=== PATIENT | male | born 1960 | race Caucasian/White ===

== ENCOUNTER 2020-09-20 09:00 | Outpatient (RCR) | payer BC, OTHER, SELFPAY | END 2020-09-27 14:00 | disposition home or self-care (01) | LOC: PT.CARL 09:00 | PROVIDERS: PCP Family Medicine; Visit Provider Neurological Surgery | DX: M51.16 Intervertebral disc disorders with radiculopathy, lumbar region (principal) | CPT/HCPCS: 97010; 97012; 97014; 97033; 97110; 97140; 97163; 97164; G0283 ==

== ENCOUNTER 2021-02-11 08:00 | Outpatient (RCR) | payer BC, OTHER, SELFPAY | END 2021-02-14 13:37 | disposition home or self-care (01) | LOC: PT.CARL 08:00 | PROVIDERS: PCP Family Medicine; Visit Provider Neurological Surgery | DX: M54.5 Low back pain; G89.18 Other acute postprocedural pain | CPT/HCPCS: 97010; 97014; 97110; 97140; 97163; 97164; G0283 ==

== ENCOUNTER 2022-04-16 21:45 | Emergency (ER) | payer BC, OTHER, SELFPAY ==
[2022-04-16 21:47] VITALS: BP 134/86; PULSE 83; RESP 18; TEMP 36.8; O2SAT 98; BMI 29.8
--- NOTE | 2022-04-16 22:17 | XR_ITS ---
PROCEDURE INFORMATION: Exam: XR Left Hand Exam date and time: 04/16/2022 10:14 PM Age: 62 years old Clinical indication: Injury or trauma; Other: Closed utv tailgate on left hand. Blunt trauma (contusions or hematomas); Additional info: Accident TECHNIQUE: Imaging protocol: Radiologic exam of the Left hand. Views: 3 or more views. COMPARISON: No relevant prior studies available. FINDINGS: Bones/joints: Mildly displaced fracture of the proximal metaphysis of the distal phalanx of the little finger. Soft tissues: Normal. IMPRESSION: Mildly displaced fracture of the proximal metaphysis of the distal phalanx of the little finger.
--- NOTE | 2022-04-16 23:03 | HMH.EDUPEXT ---
Discharge Plan Disposition Patient Disposition: Home, Self-Care Chief Complaint: Extremity Injury, Upper Prescriptions Prescriptions: New cephalexin [cephalexin] 500 mg capsule 500 mg PO TID Qty: 30 0RF No Action metformin 500 MG tablet 500 mg PO BID aspirin [Adult Aspirin Regimen] 81 MG tablet,delayed release (DR/EC) 81 mg PO DAILY levothyroxine 100 MCG tablet 100 mg PO DAILY metoprolol tartrate 50 MG tablet 50 mg PO BID omeprazole 20 MG capsule,delayed release(DR/EC) 20 mg PO DAILY lisinopril 5 MG tablet 5 mg PO DAILY loratadine [Claritin Liqui-Gel] 10 MG capsule 10 mg PO DAILY Referrals Referrals: Bijan Cardoso JR, MD [Physician] - Enter time for follow up Moustapha Alvarado MD [Emergency Provider] - Enter time for follow up Vianey Call [Primary Care Provider] - Enter time for follow up Clinical Impressions Clinical Impression: Finger fracture, left Instructions Patient Instructions: DI for Finger Fracture Discharge ED Provider: Moustapha Alvarado Upper Extremity HPI General Chief Complaint: Extremity Injury, Upper Stated Complaint: [id number] left pinky finger inj Time Seen by Provider: 04/16/22 23:03 Mode of Arrival: Ambulatory Source of Information: Patient, Spouse and Medical Record Limitations: No Limitations Description of Symptoms (Recalled from ER Triage Doc. by RN): pt states was shutting tailgate and close lt pinky finger. pt c/o lt pinky finger History of Present Illness HPI narrative: acute lt fifth finger injury complaint: injury to: left and finger Onset (ago): hour(s) Other Extremity Injury: Left: fingers Other injuries: none Handedness: right Place: home Severity: moderate Context: crush Associated symptoms: denies other symptoms Related Data Home Medications Medication Instructions Recorded Confirmed aspirin 81 mg tablet,delayed 81 mg PO DAILY Blood thinner 07/13/18 07/23/18 release (Adult Aspirin Regimen) levothyroxine 100 mcg tablet 100 mg PO DAILY thyroid 07/13/18 07/13/18 lisinopril 5 mg tablet 5 mg PO DAILY bp 07/13/18 07/13/18 loratadine 10 mg capsule (Claritin 10 mg PO DAILY allergies 07/13/18 07/13/18 Liqui-Gel) metformin 500 mg tablet 500 mg PO BID Diabetes 07/13/18 07/13/18 metoprolol tartrate 50 mg tablet 50 mg PO BID bp 07/13/18 07/13/18 omeprazole 20 mg capsule,delayed 20 mg PO DAILY GERD 07/13/18 07/13/18 release Previous Rx's Medication Instructions Recorded cephalexin 500 mg capsule 500 mg PO TID #30 caps 04/16/22 Allergies Allergy/AdvReac Type Severity Reaction Status Date / Time codeine Allergy Verified 07/13/18 10:42 tramadol Allergy Verified 04/16/22 22:59 PFS PFS Social History Smoking Status: Never smoker alcohol intake: never current occupational status: employed caffeine: No ROS Obtained: Yes Systems reviewed as appropriate & no additional complaints except as documented Musculoskeletal Musculoskeletal: Reports arthralgias, Reports deformity and Reports limited range of motion Physical Exam General General appearance: alert Head Head exam: normocephalic Eye Eye exam: Present PERRL and EOMI ENT ENT exam: Present mucous membranes moist Neck Neck exam: Present full ROM Respiratory Respiratory exam: Absent respiratory distress Cardiovascular Cardiovascular exam: Present regular rate Abdominal Exam Abdominal exam: Present soft Expanded Upper Extremity Exam Left: Hand exam: Present tenderness, swelling, laceration and deformity; Absent full ROM, amputation or subungual hematoma Vascular exam: Normal capillary refill and radial pulse Neurological Exam Neurological exam: Present alert, oriented X3 and CN II-XII intact Psychiatric Psychiatric exam: Present normal affect Medical Decision Making Medical Records Medical records reviewed: Yes I reviewed the patient's medical records. Jose D Inquiry Pt receiving controlled subs
[2022-04-16 23:06] VITALS: BP 131/85; PULSE 82; RESP 18; TEMP 36.8; O2SAT 98
== END 2022-04-16 23:17 | disposition home or self-care (01) ==
PROVIDERS: Emergency Provider Emergency Medicine; PCP Family Medicine
DX: S62.647A Nondisplaced fracture of proximal phalanx of left little finger, initial encounter for closed fracture (principal); S60.417A Abrasion of left little finger, initial encounter; W22.8XXA Striking against or struck by other objects, initial encounter
CPT/HCPCS: 29131; 73130; 90471; 90714; 99283

== ENCOUNTER 2022-10-29 07:35 | Emergency (ER) | payer BC, MEDICARE, OTHER, SELFPAY ==
[2022-10-29 07:43] VITALS: BP 119/98; PULSE 86; RESP 16; TEMP 36.5; O2SAT 98; BMI 28.0
--- NOTE | 2022-10-29 07:51 | PC.NURSE ---
Dr. Hyman in room for physical exam of patient
[2022-10-29 07:56] LABS: Basophils # 0.1 K/mm3 (0-0.2); Eosinophils % 1.5 % (0.1-12.0); Lymphocytes # 1.5 K/mm3 (0.7-4.5); Mean Platelet Volume 9.3 fl (7.4-10.4); Monocytes # 0.6 K/mm3 (0.1-1.0)
--- NOTE | 2022-10-29 07:56 | CT_ITS ---
FINAL REPORT TECHNIQUE: Postcontrast axial images through the abdomen and pelvis were performed. This study was performed with techniques to keep radiation doses as low as reasonably achievable, (ALARA). Individualized dose reduction techniques using automated exposure control or adjustment of mA and/or kV according to the patient's size were employed. CLINICAL HISTORY: abd pain FINDINGS: Abdomen: The lung bases are clear. The liver is normal in size and attenuation. The patient is status post cholecystectomy. The spleen is unremarkable. The adrenals are normal. The pancreas is unremarkable. The kidneys enhance appropriately. The aorta is normal in caliber. No free fluid or adenopathy is identified. No findings for mechanical bowel obstruction are identified. Pelvis: The appendix is not identified. There is descending and sigmoid diverticulosis without evidence of diverticulitis. There are multiple fluid-filled bowel loops which are nonspecific, could represent enteritis. The urinary bladder is unremarkable. No free fluid, free air, abscess or adenopathy is identified. IMPRESSION: Findings could represent enteritis. Diverticulosis without evidence of diverticulitis. Reviewed, Interpreted and Dictated by Bj Toro III, MD Transcribed by Mary Garcia Authenticated and [facility]
--- NOTE | 2022-10-29 07:58 | HMH.EDABDPAI ---
Discharge Plan Disposition Patient Disposition: Home, Self-Care Condition: Good Prescriptions Prescriptions: New dicyclomine 20 mg tablet 20 mg PO QID PRN (Reason: cramps) Qty: 20 0RF ondansetron 4 mg tablet,disintegrating 4 mg PO Q8H PRN (Reason: nausea and vomiting) 5 Days Qty: 20 0RF No Action metformin 500 MG tablet 500 mg PO BID aspirin [Adult Aspirin Regimen] 81 MG tablet,delayed release (DR/EC) 81 mg PO DAILY levothyroxine 100 MCG tablet 100 mg PO DAILY metoprolol tartrate 50 MG tablet 50 mg PO BID omeprazole 20 MG capsule,delayed release(DR/EC) 20 mg PO DAILY Claritin Liqui-Gel 10 MG capsule 10 mg PO DAILY Jardiance 25 mg tablet 25 mg PO DAILY Label Comments: TAKE 1 TABLET BY MOUTH EVERY DAY tamsulosin 0.4 mg capsule 0.8 mg PO DAILY Label Comments: TAKE 2 CAPSULES BY MOUTH EVERY DAY valsartan 160 mg tablet 160 mg PO DAILY Ozempic 0.25 mg or 0.5 mg (2 mg/3 mL) Pen Injector 0.25 mg SQ WEEKLY Rx Instructions: for 4 weeks Referrals Follow up/Referrals: Vianey Call [Primary Care Provider] - See instructions Activity Restrictions/Add. Instructions Additional Instructions/Restrictions: Follow bland diet: No fried greasy or spicy foods. Avoid dairy products and caffeine. Hydrate with an oral rehydration solution such as Pedialyte. Return for worsening abdominal pain, bloody stools or fever. Clinical Impressions Clinical Impression: Gastroenteritis, Adverse drug reaction Instructions Patient Instructions: DI for Acute Abdominal Pain Discharge ED Provider: Christiano JIMÉNEZ)Moustapha Abdominal Pain HPI General Chief Complaint: Abdominal Pain Stated Complaint: Lower back pain/abd pain nausea, diarrhea Time Seen by Provider: 10/29/22 07:50 Mode of Arrival: Ambulatory Source of Information: Patient and Spouse Limitations: No Limitations Description of Symptoms (Recalled from ER Triage Doc. by RN): Pt presents c/o LLQ abd pain, nausea, diarrhea, reports I've been burping and it tastes metallic , reports recently starting Ozempic t2DM mgt History of Present Illness HPI narrative: Patient presents complaining of approximate 4-day history of lower abdominal pain. He also states he has had substantial belching and diarrhea which has been watery in nature. He denies recent antibiotic use. He states has been applying a cream called DMSO to his dog for the last few days prior to symptom onset. According nursing notes he also recently started Ozempic. Symptoms are described as mild to moderate he believes he may have had some fever as well although he denies fever at this time. He denies exacerbating or alleviating factors. Related Data Home Medications Medication Instructions Recorded Confirmed aspirin 81 mg tablet,delayed 81 mg PO DAILY Blood thinner 07/13/18 10/29/22 release (Adult Aspirin Regimen) levothyroxine 100 mcg tablet 100 mg PO DAILY thyroid 07/13/18 10/29/22 loratadine 10 mg capsule (Claritin 10 mg PO DAILY allergies 07/13/18 10/29/22 Liqui-Gel) metformin 500 mg tablet 500 mg PO BID Diabetes 07/13/18 10/29/22 metoprolol tartrate 50 mg tablet 50 mg PO BID bp 07/13/18 10/29/22 omeprazole 20 mg capsule,delayed 20 mg PO DAILY GERD 07/13/18 10/29/22 release empagliflozin 25 mg tablet 25 mg PO DAILY Diabetes 10/29/22 10/29/22 (Jardiance) semaglutide 0.25 mg or 0.5 mg (2 0.25 mg SQ WEEKLY Diabetes 10/29/22 10/29/22 mg/3 mL) subcutaneous pen injector (Ozempic) tamsulosin 0.4 mg capsule 0.8 mg PO DAILY Fluid 10/29/22 10/29/22 valsartan 160 mg tablet 160 mg PO DAILY High blood pressure 10/29/22 10/29/22 Previous Rx's Medication Instructions Recorded dicyclomine 20 mg tablet 20 mg PO QID PRN cramps #20 tabs 10/29/22 ondansetron 4 mg disintegrating 4 mg PO Q8H PRN nausea and 10/29/22 tablet vomiting 5 days #20 tabs Allergies Allergy/AdvReac Type Severity Reaction Status Date / T
[2022-10-29 08:01] LABS: Basophils % 0.7 % (0.1-2.0); Eosinophils # 0.1 K/mm3 (0.0-0.4); Hemoglobin 18.3 g/dL (14.1-18.0); Lymphocytes % 15.5 % (10-50); Mean Corpuscular HGB Conc 33.9 g/dL (31.8-35.4); Mean Corpuscular Hemoglobin 33.3 pg (27.0-31.2); Mean Corpuscular Volume 98.4 fl (80-94); Monocytes % 6.4 % (1.7-9.3); Neutrophils # 7.4 K/mm3 (1.8-7.8); Neutrophils % 75.9 % (37.0-80.0); Platelet Count 202 K/mm3 (142-424); Red Blood Count 5.48 M/mm3 (4.60-6.20); White Blood Count 9.8 K/mm3 (4.8-10.8)
[2022-10-29 08:05] LABS: Alanine Aminotransferase 32 U/L (12-78); Alkaline Phosphatase 75 U/L (38-126); Anion Gap 12.1 mEq/L (5-15); Aspartate Amino Transferase 27 U/L (17-59); Bilirubin,Total 1.4 mg/dl (0.2-1.3); Blood Urea Nitrogen 19 mg/dl (9-20); Calcium 8.7 mg/dl (8.4-10.2); Carbon Dioxide 23 mmol/L (22.0-30.0); Chloride 107 mmol/L (98-107); Creatinine Clearance Estimated 78 mL/min (50-200); Estimated Glomerular Filt Rate 61 ml/min (>60); GFR (African American) 74 ML/MIN (>60); Globulin 2.5 g/dL (1.3-3.2); Glucose 227 mg/dl (74-100); Lipase 155 U/L (23-300); Potassium 4.1 mmoL/L (3.5-5.1); Sodium 138 mmol/L (136-145); Total Protein,Serum 7.5 g/dl (6.3-8.2)
[2022-10-29 08:06] LABS: Magnesium 2.1 mg/dl (1.6-2.3); Phosphorous 3.9 mg/dl (2.5-4.5)
[2022-10-29 08:11] LABS: Adenovirus F 40/41, stool Not Detected (NotDetected); Astrovirus Not Detected (NotDetected); Campylobacter Not Detected (NotDetected); Clostridium Difficile A/B, PCR Not Detected (NotDetected); Cryptosporidium Not Detected (NotDetected); Cyclospora Cayetanesis Not Detected (NotDetected); Entamoeba histolytica Not Detected (NotDetected); Enteroaggregative E coli Not Detected (NotDetected); Enteropathogenic E coli Not Detected (NotDetected); Enterotoxigenic E coli Not Detected (NotDetected); Giardia lamblia Not Detected (NotDetected); Microscopic, Urine URINE MICROSCOPIC (MICROSCOPIC); Norovirus Not Detected (NotDetected); Plesimonas Shigalloides, PCR Not Detected (NotDetected); Rotavirus A Not Detected (NotDetected); Salmonella, PCR Not Detected (NotDetected); Sapovirus Not Detected (NotDetected); Shiga-like toxin E coli Not Detected (NotDetected); Shigella Enterovasive E coli Not Detected (NotDetected); Vibrio Cholerae Not Detected (NotDetected); Vibrio, PCR Not Detected (NotDetected); Yersinia Entercolitica, PCR Not Detected (NotDetected)
--- NOTE | 2022-10-29 08:17 | PC.NURSE ---
pt to CT via wheelchair
[2022-10-29 08:21] LABS: Appearance,Urine CLEAR (Clear); Bilirubin,Urine Negative (Negative); Blood, Urine Negative (Negative); Color,Urine YELLOW (Yellow); Glucose,Urine (UA) 3+ (Negative); Ketones,Urine Negative (Negative); Leukocyte Esterase,Urine Negative (Negative); Nitrate,Urine Negative (Negative); Protein,Urine Negative (Negative); Specific Gravity, Urine 1.015 (1.005-1.030); Urobilinogen,Urine 0.2 EU/dl (0.2)
--- NOTE | 2022-10-29 08:28 | PC.NURSE ---
pt return from CT
[2022-10-29 08:30] VITALS: BP 145/101; PULSE 82; RESP 17; O2SAT 96
--- NOTE | 2022-10-29 08:56 | PC.NURSE ---
rounded on pt at this time, family at BS, pt sleeping. Family states no needs at this time, updated her we are waiting on pt ct scan results.
[2022-10-29 09:00] VITALS: BP 124/83; PULSE 80; RESP 15; O2SAT 95
[2022-10-29 09:30] VITALS: BP 122/82; PULSE 86; RESP 16; O2SAT 95
[2022-10-29 10:00] VITALS: BP 124/91; PULSE 82; RESP 16; O2SAT 95
--- NOTE | 2022-10-29 10:10 | PC.NURSE ---
1007-contacted rad to check on status of ct results, states there is a preliminary result available and then will send it down to us. 1011-preliminary ct result given to MAKAYLA LOPEZ
--- NOTE | 2022-10-29 10:19 | PC.NURSE ---
rounded on pt and asked if they needed anything. pt stated would like a drink of water. checked with the doctor and he stated it was ok. pt was given water in glass with a straw..
[2022-10-29 10:36] VITALS: BP 134/93; PULSE 73; RESP 16; TEMP 36.7; O2SAT 99
== END 2022-10-29 10:37 | disposition home or self-care (01) ==
PROVIDERS: Emergency Provider Emergency Medicine; PCP Family Medicine
DX: K52.9 Noninfective gastroenteritis and colitis, unspecified (principal)
CPT/HCPCS: 74177; 80053; 81001; 83690; 83735; 84100; 85025; 87506; 99285; Q9967

== ENCOUNTER 2023-05-02 11:28 | Emergency (ER) | payer MEDICARE, OTHER, SELFPAY ==
[2023-05-02 11:30] VITALS: BP 140/85; PULSE 85; RESP 18; TEMP 36.4; O2SAT 96; BMI 30.7
--- NOTE | 2023-05-02 11:42 | XR_ITS ---
PROCEDURE INFORMATION: Exam: XR Left Hand Exam date and time: 05/02/2023 11:39 AM Age: 63 years old Clinical indication: Pain; Hand; Left; Additional info: Left wrist minor crush injury TECHNIQUE: Imaging protocol: Radiologic exam of the left hand. Views: 3 or more views. COMPARISON: CR XR HAND LT MIN 3V 04/16/2022 10:14 PM FINDINGS: Bones/joints: Indeterminate age triquetrum fracture appears new since prior x-ray. Soft tissues: Normal. IMPRESSION: Indeterminate age triquetrum fracture appears new since prior x-ray.
--- NOTE | 2023-05-02 11:42 | XR_ITS ---
PROCEDURE INFORMATION: Exam: XR Left Wrist Exam date and time: 05/02/2023 11:38 AM Age: 63 years old Clinical indication: Pain; Wrist; Left; Additional info: Left wrist minor crush injury TECHNIQUE: Imaging protocol: Radiologic exam of the left wrist. Views: 3 or more views. COMPARISON: CR XR HAND LT MIN 3V 04/16/2022 10:14 PM FINDINGS: Bones/joints: Indeterminate age triquetrum fracture appears new since prior x-ray. Soft tissues: Normal. IMPRESSION: Indeterminate age triquetrum fracture appears new since prior x-ray.
--- NOTE | 2023-05-02 11:45 | HMH.EDGENADL ---
Discharge Plan Disposition Patient Disposition: Home, Self-Care Chief Complaint: PAIN Prescriptions Prescriptions: No Action aspirin [Adult Aspirin Regimen] 81 MG tablet,delayed release (DR/EC) 81 mg PO DAILY levothyroxine 100 MCG tablet 100 mg PO DAILY metoprolol tartrate 50 MG tablet 50 mg PO BID omeprazole 20 MG capsule,delayed release(DR/EC) 20 mg PO DAILY Jardiance 25 mg tablet 25 mg PO DAILY Patient Comments: TAKE 1 TABLET BY MOUTH EVERY DAY tamsulosin 0.4 mg capsule 0.8 mg PO DAILY Patient Comments: TAKE 2 CAPSULES BY MOUTH EVERY DAY valsartan 160 mg tablet 160 mg PO DAILY Rx Instructions: Patient no longer taking montelukast 10 mg tablet 10 mg PO DAILY Referrals Follow up/Referrals: Vianey Call [Primary Care Provider] - See instructions Activity Restrictions/Add. Instructions Additional Instructions/Restrictions: Call your family doctor to establish care for this visit to the emergency department and schedule follow-up within 48 hours to ensure improvement. If you have any worsening of your condition or any other concerning signs or symptoms, return to the emergency department or your primary care doctor for further evaluation. Take Tylenol 1000 mg every 6 hours (4 times daily) and ibuprofen 400 mg every 6 hours (4 times daily) as needed with food and water to prevent GI upset and kidney damage. Clinical Impressions Clinical Impression: Crushing injury of left wrist, initial encounter Discharge ED Provider: Sarabjit Tapia General Adult HPI General Chief complaint: PAIN Stated complaint: [id number] left hand injury, home Time Seen by Provider: 05/02/23 11:30 Mode of Arrival: Ambulatory Source of Information: Patient Limitations: No Limitations Description of Symptoms (Recalled from ER Triage Doc. by RN): pt states he was picking up a gate when another gate fell and smashed his L hand inbetween the 2 chiang, small open wound on top of hand, UTD on tetanus shot per pt, denies any other symptoms, able to move hand and fingers, mild swelling noted History of Present Illness HPI narrative: 63-year-old male with history of hypertension and diabetes presenting with left hand injury. Up-to-date on vaccinations. Patient states that he had a small crush injury of his left wrist while working with a fence outside. Minor pain, hemostatic, but given previous injury to right hand and difficulty bending finger, wanted to come in to make sure bones and tendons are okay. Pain is mild, does not radiate Related Data Home Medications Medication Instructions Recorded Confirmed aspirin 81 mg tablet,delayed 81 mg PO DAILY Blood thinner 07/13/18 05/02/23 release (Adult Aspirin Regimen) levothyroxine 100 mcg tablet 100 mg PO DAILY thyroid 07/13/18 05/02/23 metoprolol tartrate 50 mg tablet 50 mg PO BID bp 07/13/18 05/02/23 omeprazole 20 mg capsule,delayed 20 mg PO DAILY GERD 07/13/18 05/02/23 release empagliflozin 25 mg tablet 25 mg PO DAILY Diabetes 10/29/22 05/02/23 (Jardiance) tamsulosin 0.4 mg capsule 0.8 mg PO DAILY Fluid 10/29/22 05/02/23 valsartan 160 mg tablet 160 mg PO DAILY High blood pressure 10/29/22 05/02/23 montelukast 10 mg tablet 10 mg PO DAILY allergies 05/02/23 05/02/23 Allergies Allergy/AdvReac Type Severity Reaction Status Date / Time codeine Allergy Verified 10/29/22 07:45 empagliflozin Allergy Verified 05/02/23 11:42 [From Jardiance] semaglutide [From Ozempic] Allergy Verified 05/02/23 11:42 tramadol Allergy Verified 10/29/22 07:45 [facility] Disclaimer: The information contained in this section may have been updated after the patient was seen, as this information can be updated by other users. Social History Smoking Status: Never smoker alcohol intake: never current occupational status: employed Travel in the last 8 weeks: None caffeine: No ROS Obtained: Yes All systems reviewed & no additional complaints except as documented Physical Exam General General appearance: alert, in no apparent distress and other ( ) Head Head exam: atraumatic and normocephalic Eye Eye exam: Present normal appearance, PERRL and EOMI ENT ENT exam: Present mucous membranes moist Neck Neck exam: Present normal inspection, full ROM and trachea midline Respiratory Respiratory exam: Absent respiratory distress, wheezes, stridor, accessory muscle use or prolonged expiratory phase Cardiovascular Cardiovascular exam: Present regular rate and normal rhythm Abdominal Exam Abdominal exam: Present soft; Absent distention, tenderness, guarding, rebound, rigidity or normal bowel sounds Extremities Exam Extremities exam: Present full ROM, tenderness and other (superficial skin tear dorsal wrist LUE. hemostatic. NV intact); Absent edema Neurological Exam Neurological exam: Present alert, oriented X3, CN II-XII intact and normal gait; Absent motor sensory deficit Skin Skin exam: Present warm and dry; Absent diaphoresis or erythema Medical Decision Making Medical Records Medical records reviewed: Yes I reviewed the patient's medical records. Jose D Inquiry Pt receiving controlled substance: No Jose D was queried for this patient: No Vital Signs: 05/02/23 11:30 Temperature 97.6 F Temperature Source Oral Pulse Rate [Right Radial] 85 Respiratory Rate 18 Blood Pressure [Right Arm] 140/85 Blood Pressure Mean [Right Arm] 103 Blood Pressure Source [Right Arm] Automatic Cuff Blood Pressure Position [Right Arm] Sitting 02 Sat by Pulse Oximetry 96 Oxygen Delivery Method Room Air Orders (Tests/Meds): ORDERS Category Date Time Status Hand XR left minimum 3 views [XR hand LT min 3V] Stat Exams 05/02/23 11:42 Taken Wrist XR left minimum 3 views [XR wrist LT min 3V] Stat Exams 05/02/23 11:42 Taken Medical Decision Narrative: 63-year-old male with history of hypertension and diabetes presenting with left hand injury. Up-to-date on vaccinations. Patient states that he had a small crush injury of his left wrist while working with a fence outside. Minor pain, hemostatic, but given previous injury to right hand and difficulty bending finger, wanted to come in to make sure bones and tendons are okay. Pain is mild, does not radiate. History was obtained via conversation with patient. On arrival, patient hemodynamically stable, alert, oriented x4, appropriate, GCS 15, moving all extremities spontaneously, pupils equal and reactive to light. Full physical exam performed and significant for superficial skin tear dorsally on the wrist of the left upper extremity. Hemostatic. Neurovascularly intact, full range of motion. Differential includes superficial injury, fracture, dislocation/subluxation, foreign body, among others. Patient was given nothing in the emergency department for symptomatic management and correction of underlying abnormalities. Workup independently interpreted and significant for no acute fracture, bony abnormality, dislocation of the hand or carpal bones. See radiology read for full review of final results. On reevaluation, patient resting comfortably in bed. Given patient presentation, workup, history, this most likely represents minor MSK trauma in the setting of minor crush injury. Because patient at baseline without signs or symptoms of clinical decompensation, deemed appropriate for discharge. Results were relayed to patient who voiced understanding and were agreeable to outpatient management and follow up. Patient was discharged in hemodynamically stable condition with recommended primary care follow-up. Critical Care Critical Care Time Critical Care Time: No
--- NOTE | 2023-05-02 11:46 | PC.NURSE ---
pt ambulated to radiology.
[2023-05-02 12:32] VITALS: BP 138/92; PULSE 78; RESP 18; TEMP 36.6; O2SAT 94
== END 2023-05-02 12:32 | disposition home or self-care (01) ==
PROVIDERS: Emergency Provider Emergency Medicine; PCP Family Medicine
DX: S67.32XA Crushing injury of left wrist, initial encounter (principal); E11.9 Type 2 diabetes mellitus without complications; I10 Essential (primary) hypertension; W23.1XXA Caught, crushed, jammed, or pinched between stationary objects, initial encounter
CPT/HCPCS: 73110; 73130; 99283

== ENCOUNTER 2024-01-25 08:00 | Outpatient (RCR) | payer MEDICARE, OTHER, SELFPAY | END 2024-02-22 14:35 | disposition home or self-care (01) | LOC: PT 08:00 | PROVIDERS: Visit Provider Physician Assistant Surgical | DX: M75.41 Impingement syndrome of right shoulder (principal) | CPT/HCPCS: 20560; 97010; 97014; 97035; 97110; 97140; 97163; 97530; G0283 ==

== ENCOUNTER 2025-01-04 11:30 | Emergency (ER) | payer MEDICARE, OTHER, SELFPAY ==
[2025-01-04 11:36] VITALS: BP 140/98; PULSE 88; RESP 16; TEMP 36.6; O2SAT 97; BMI 29.2
--- NOTE | 2025-01-04 11:47 | PC.NURSE ---
Dr Mccauley at bedside
--- NOTE | 2025-01-04 11:52 | ED_ITS ---
Discharge Plan Disposition Patient Disposition: Home, Self-Care Prescriptions Prescriptions: New ondansetron HCl 4 mg tablet 4 mg PO DAILY PRN (Reason: nausea and vomiting) 4 Days Qty: 10 0RF dicyclomine 10 mg capsule 10 mg PO BID Qty: 10 0RF No Action aspirin [Adult Aspirin Regimen] 81 MG tablet,delayed release (DR/EC) 81 mg PO DAILY levothyroxine 100 MCG tablet 100 mg PO DAILY metoprolol tartrate 50 MG tablet 50 mg PO BID omeprazole 20 MG capsule,delayed release(DR/EC) 20 mg PO DAILY Jardiance 25 mg tablet 25 mg PO DAILY Patient Comments: TAKE 1 TABLET BY MOUTH EVERY DAY tamsulosin 0.4 mg capsule 0.8 mg PO DAILY Patient Comments: TAKE 2 CAPSULES BY MOUTH EVERY DAY valsartan 160 mg tablet 160 mg PO DAILY Rx Instructions: Patient no longer taking montelukast 10 mg tablet 10 mg PO DAILY cefadroxil 500 mg capsule 500 mg PO BID 5 Days Qty: 10 0RF Referrals Follow up/Referrals: Vianey Call [Primary Care Provider] - See instructions Activity Restrictions/Add. Instructions Additional Instructions/Restrictions: Please drink plenty of fluids, if you develop weakness, pass out, or dizziness please come back to the emergency department for further management. Please take the medication as prescribed Clinical Impressions Clinical Impression: Acute diarrhea Instructions Patient Instructions: DI for Diarrhea and Traveler's Diarrhea -- Adult, DI for Diarrhea and Traveler's Diarrhea -- Child, DI for Nausea -- Adult, DI for Nausea -- Child Print Language Print Language: Korean Discharge ED Provider: Broderick Mccauley Adult HPI General Chief complaint: Nausea/Vomiting/Diarrhea Stated complaint: Diarrhea x 4 days Time Seen by Provider: 01/04/25 11:40 Mode of Arrival: Ambulatory Source of Information: Patient Description of Symptoms (Recalled from ER Triage Doc. by RN): Patient reports diarrhea since Thursday. Denies nausea or vomiting. States that he feels fine just keeps having diarrhea. History of Present Illness HPI narrative: Patient is a 64-year-old past medical history of diabetes, pancreatitis, presenting for diarrhea and abdominal pain. Patient said that he was working outside about 4 5 days ago and then has had profuse nonbloody diarrhea since then. He did not ingest anything out of the ordinary, did not eat anything abnormal, and no one that was working with him has the same symptoms. Patient has had a cholecystectomy. Patient is not tried any medication prior to arrival but feels generally weak. Denies chest pain, shortness of breath, vomiting, dizziness, blurry vision Related Data Home Medications ?Medication ?Instructions ?Recorded ?Confirmed aspirin 81 mg tablet,delayed 81 mg PO DAILY Blood thinner 07/13/18 05/02/23 release (Adult Aspirin Regimen) levothyroxine 100 mcg tablet 100 mg PO DAILY thyroid 07/13/18 05/02/23 metoprolol tartrate 50 mg tablet 50 mg PO BID bp 07/13/18 05/02/23 omeprazole 20 mg capsule,delayed 20 mg PO DAILY GERD 07/13/18 05/02/23 release empagliflozin 25 mg tablet 25 mg PO DAILY Diabetes 10/29/22 05/02/23 (Jardiance) tamsulosin 0.4 mg capsule 0.8 mg PO DAILY Fluid 10/29/22 05/02/23 valsartan 160 mg tablet 160 mg PO DAILY High blood pressure 10/29/22 05/02/23 montelukast 10 mg tablet 10 mg PO DAILY allergies 05/02/23 05/02/23 Previous Rx's ?Medication ?Instructions ?Recorded cefadroxil 500 mg capsule 500 mg PO BID 5 days #10 caps 05/02/23 dicyclomine 10 mg capsule 10 mg PO BID #10 caps 01/04/25 ondansetron HCl 4 mg tablet 4 mg PO DAILY PRN nausea and 01/04/25 vomiting 4 days #10 tabs Allergies Allergy/AdvReac Type Severity Reaction Status Date / Time codeine Allergy Unknown Verified 01/04/25 11:42 allergy reaction dulaglutide (From Trulicity) Allergy Unknown Verified 01/04/25 11:42 allergy reaction empagliflozin (From Allergy Unknown Verified 01/04/25 11:42 Jardiance) allergy reaction semaglutide (From Ozempic) Allergy Unknown Verified 01/04/25 11:42 allergy reaction tramadol Allergy Unknown Verified 01/04/25 11:42 allergy reaction PFSH PFS Disclaimer: The information contained in this section may have been updated after the patient was seen, as this information can be updated by other users. Social History Smoking Status: Never smoker alcohol intake: never current occupational status: employed Travel in the last 8 weeks?: None caffeine: No Have you lived/traveled outside US in past 30 days?: No Contact w/someone who lives/traveled outside US past 30 days?: No Exposure to someone with infectious disease in past 14 days?: No Do you have a fever (greater than 100.4 F or 38 C)?: No Have you tested positive for COVID-19?: No Exposed to someone with COVID-19 in past 14 days?: No Do you have a sore throat?: No Do you have a cough?: No Do you have any weakness?: No Do you have any diarrhea?: Yes Are you experiencing any unusual bleeding?: No Do you have any muscle aches/pain?: No Do you have any abdominal pain?: No Are you experiencing loss of taste or smell?: No ROS Obtained: Yes All systems reviewed & no additional complaints except as documented Physical Exam General General appearance: alert Eye Eye exam: Present normal appearance ENT ENT exam: Present normal exam Chest Chest inspection: Present normal inspection Respiratory Respiratory exam: Present normal lung sounds bilaterally Cardiovascular Cardiovascular exam: Present regular rate and other Abdominal Exam Abdominal exam: Present soft and tenderness; Absent guarding or rebound Abdominal tenderness: Present epigastrium Neurological Exam Neurological exam: Present alert and oriented X3 Skin Skin exam: Present warm, dry and other (Brisk cap refill) Medical Decision Making Medical Records Screening: Per USPSTF and CDC recommendations, given the prevalence of disease in our region, it is our hospital?s policy to screen for HIV and viral Hepatitis for all patients aged 18 and over and those with ongoing risk factors. Jose D Inquiry Pt receiving controlled substance: No Vital Signs: 01/04/25 11:36 01/04/25 12:54 01/04/25 14:18 Temperature 97.9 F 98.6 F Temperature Source Oral Oral Pulse Rate 81 67 Pulse Rate [Radial] 88 Respiratory Rate 16 17 20 Blood Pressure 140/87 134/78 Blood Pressure [Right Arm] 140/98 H Blood Pressure Mean [Right Arm] 112 Blood Pressure Source Automatic Cuff Blood Pressure Source [Right Arm] Automatic Cuff Blood Pressure Position Supine Blood Pressure Position [Right Arm] Sitting 02 Sat by Pulse Oximetry 97 95 Oxygen Delivery Method Room Air Room Air Room Air Lab Data Lab Results 01/04/25 12:06: WBC 7.0, RBC 5.03, Hgb 16.7, Hct 46.7, MCV 92.8, MCH 33.2 H, M CHC 35.8 H, RDW 12.4, Plt Count 151, MPV 10.0, Neut % (Auto) 63.4, Lymph % (Auto) 26.2, Clarke % (Auto) 8.6, Eos % (Auto) 1.3, Baso % (Auto) 0.4, Neut # (Auto) 4.4, Lymph # (Auto) 1.8, Clarke # (Auto) 0.6, Eos # (Auto) 0.1, Baso # (Auto) 0.0, Sodium 138, Potassium 4.0, Chloride 112 H, Carbon Dioxide 21 L, Anion Gap 9.0, BUN 21 H, Creatinine 1.00, Estimated Creat Clear 95, Estimated GFR 75, Est GFR ( Amer) 91, Glucose 149 H, Calcium 8.9, Total Bilirubin 1.2, AST 24, ALT 31, Alkaline Phosphatase 58, Troponin I < 0.01, Total Protein 6.9, Albumin 4.4, Globulin 2.5, Albumin/Globulin Ratio 1.8, Lipase 184, HCV Ab ZAINAB w/Rflx PCR Qn Negative, HIV Ag/Ab Combo Qual Negative 01/04/25 12:59: Urine Color Yellow, Urine Appearance Clear, Urine pH 6.0, Ur Specific [place] 1.020, Urine Protein Negative, Urine Glucose (UA) 3+, Urine Ketones Negative, Urine Blood Negative, Urine Nitrate Negative, Urine Bilirubin Negative, Urine Urobilinogen 0.2, Ur Leukocyte Esterase Negative, Urine RBC None, Urine WBC Occasional, Ur Squamous Epith Cells Occasional, Urine Bacteria None 01/04/25 12:06 01/04/25 12:06 Orders (Tests/Meds): ED MEDICATIONS Discontinued Medications Generic Name Dose Route Start Last Admin Trade Name Freq PRN Reason Stop Dose Admin Acetaminophen 1,000 mg 01/04/25 11:54 01/04/25 12:09 Acetaminophen 1,000mg/100ml Vial IV 01/04/25 11:55 1,000 mg ONCE ONE Administration Dicyclomine HCl 20 mg 01/04/25 11:54 01/04/25 12:09 Dicyclomine 10mg Capsule PO 01/04/25 11:55 20 mg ONCE ONE Administration Famotidine 20 mg 01/04/25 11:54 01/04/25 12:08 Famotidine 20mg Tablet PO 01/04/25 11:55 20 mg ONCE ONE Administration Lactated Ringer's 1,000 mls @ 999 mls/hr 01/04/25 11:54 01/04/25 12:10 Lactated Ringer's 1000 Ml Bag IV 01/04/25 12:54 999 mls/hr .Q1H1M ONE Administration Iopamidol 75 ml 01/04/25 12:51 01/04/25 12:51 Iopamidol-370 (76%);100ml Bottle IV 01/04/25 12:52 75 ml ONCE ONE Administration Ondansetron HCl 4 mg 01/04/25 11:54 01/04/25 12:09 Ondansetron 4mg/2ml Vial IV 01/04/25 11:55 4 mg ONCE ONE Administration Sodium Chloride 10 ml 01/04/25 12:51 01/04/25 12:51 Sodium Chloride 0.9% 10ml Syr (Rad Only) IV 02/03/25 12:50 10 ml NEEDED PRN Administration Maintain IV Site ORDERS Category Date Time Status CT abdomen pelvis w con Stat Cat Scan 01/04/25 11:54 Completed Complete Blood Count Auto Diff Stat Lab 01/04/25 12:06 Completed Comprehensive Metabolic Panel Stat Lab 01/04/25 12:06 Completed Diarrhea 23 Panel, PCR Stat Lab 01/04/25 12:59 Received HIV Combo Stat Lab 01/04/25 12:06 Completed Hepatitis C Ab Qual. W/ RFX Stat Lab 01/04/25 12:06 Completed Lipase Stat Lab 01/04/25 12:06 Completed Troponin I Stat Lab 01/04/25 12:06 Completed Urinalysis and Microscopic Stat Lab 01/04/25 12:59 Completed Medical Decision Narrative: In summary, this 64-year-old male presents to the emergency department today with diarrhea and abdominal. On initial evaluation patient is comfortable, well- appearing with brisk cap refill. He has mild tenderness to palpation of his epigastric region and a history of pancreatitis so did a CT and labs. Additionally he has had multiple episodes of nonbloody diarrhea and is otherwise afebrile. He may have an enteritis, but has multiple comorbidities abdominal tenderness.. Differential diagnosis includes but is not limited to enteritis, pancreatitis, gastroenteritis,. Patient received fluids, Tylenol, Bentyl, famotidine for treatment. Labs personally reviewed demonstrate hyperchloremia, decreased bicarb, mildly elevated BUN without elevated creatinine, first troponin negative. Mildly elevated lipase but within normal limits, CT imaging personally interpreted demonstrate no hemoperitoneum or pneumoperitoneum. On reassessment symptoms mildly improved, was able to give a stool sample. Have low suspicion for pancreatitis as patient is still able to eat and states that the symptoms he is having is not very similar to previous bouts of pancreatitis. This may be due to an enteritis, and discussed drinking plenty of fluids and was sent home with Jonatan and Tristian. The symptoms may be related to his medications as well. Admission was considered but patient was well-appearing, wanting to go home and pain well-controlled. Critical Care Critical Care Time Critical Care Time: No
--- NOTE | 2025-01-04 11:54 | CT_ITS ---
FINAL REPORT TECHNIQUE: After the administration of intravenous contrast, axial images were obtained through the abdomen and pelvis by computed tomography. This study was performed with technique to keep radiation doses as low as reasonably achievable, (ALARA). Individualized dose reduction techniques using automated exposure control or adjustment of the MA and/or KV according to the patient's size were employed. CLINICAL HISTORY: epigastric ab pain COMPARISON: 10/29/2022 FINDINGS: Abdomen: The lung bases are clear. The liver is fatty infiltrated. Patient is status postcholecystectomy. The spleen is unremarkable. The adrenals are normal. The pancreas is unremarkable. The kidneys enhance appropriately. The aorta is normal in caliber. There is no free fluid or adenopathy. Pelvis: The appendix is normal. There are scattered diverticula of the descending and sigmoid colon without evidence of diverticulitis. The urinary bladder is unremarkable. There is no free fluid or adenopathy. IMPRESSION: Fatty infiltration of the liver. Descending and sigmoid diverticulosis without evidence of diverticulitis. Reviewed, Interpreted and Dictated by Geo Cuello MD Transcribed by Diana Maher Authenticated and [facility]
[2025-01-04] MEDS: FAMOTIDINE 20MG TABLET 20 MG PO (12:08)
[2025-01-04] MEDS: DICYCLOMINE 10MG CAPSULE 20 MG PO (12:09)
[2025-01-04] MEDS: ONDANSETRON 4MG/2ML VIAL 4 MG IV (12:09)
[2025-01-04] MEDS: ACETAMINOPHEN 1,000MG/100ML VIAL 1000 MG IV (12:09)
[2025-01-04] MEDS: LACTATED RINGERS 1000ML 1,000 ML 999 ML IV (12:10)
[2025-01-04 12:15] LABS: Basophils % 0.4 % (0.1-2.0); Eosinophils # 0.1 Kmm3 (0.0-0.4); Eosinophils % 1.3 % (0.1-12.0); Hematocrit 46.7 % (42.0-52.0); Hemoglobin 16.7 g/dL (14.1-18.0); Immature Granulocytes # 0.01 10^3uL; Immature Granulocytes % 0.1 %; Lymphocytes # 1.8 K/mm3 (0.7-4.5); Lymphocytes % 26.2 % (10-50); Mean Corpuscular HGB Conc 35.8 g/dL (31.8-35.4); Mean Corpuscular Hemoglobin 33.2 pg (27.0-31.2); Mean Corpuscular Volume 92.8 fl (80-94); Monocytes # 0.6 K/mm3 (0.1-1.0); Monocytes % 8.6 % (1.7-9.3); Neutrophils # 4.4 K/mm3 (1.8-7.8); Neutrophils % 63.4 % (37.0-80.0); Nucleated Red Blood Cells # 0 10^3/uL; Nucleated Red Blood Cells % 0 %; Platelet Count 151 K/mm3 (142-424); Red Blood Count 5.03 M/mm3 (4.60-6.20); Red Cell Distribution Width 12.4 % (11.5-17.5); Red Cell Distribution Width-SD 42.2 fL
[2025-01-04 12:24] LABS: Chloride 112 mmol/L (98-107)
[2025-01-04 12:25] LABS: Albumin Level 4.4 g/dl (3.5-5.0); Sodium 138 mmol/L (136-145)
[2025-01-04 12:28] LABS: Alanine Aminotransferase 31 U/L (12-78); Albumin/Globulin Ratio 1.8 (1.1-1.8); Alkaline Phosphatase 58 U/L (38-126); Aspartate Amino Transferase 24 U/L (17-59); Bilirubin,Total 1.2 mg/dl (0.2-1.3); Blood Urea Nitrogen 21 mg/dl (9-20); Calcium 8.9 mg/dl (8.4-10.2); Carbon Dioxide 21 mmol/L (22.0-30.0); Creatinine Clearance Estimated 95 mL/min (50-200); Estimated Glomerular Filt Rate 75 ml/min (>60); GFR (African American) 91 ML/MIN (>60); Globulin 2.5 g/dL (1.3-3.2); Glucose 149 mg/dl (74-100); Lipase 184 U/L (23-300); Total Protein,Serum 6.9 g/dl (6.3-8.2)
[2025-01-04 12:41] LABS: Troponin I < 0.01 ng/ml (0.00-0.034)
[2025-01-04] MEDS: SODIUM CHLORIDE 0.9% 10ML SYR (RAD ONLY) 10 ML IV (12:51)
[2025-01-04] MEDS: IOPAMIDOL-370 (76%);100ML BOTTLE 75 ML IV (12:51)
[2025-01-04 12:54] VITALS: BP 140/87; PULSE 81; RESP 17; O2SAT 95
[2025-01-04 13:08] LABS: Adenovirus F 40/41, stool Not Detected (NotDetected); Astrovirus Not Detected (NotDetected); Campylobacter Not Detected (NotDetected); Clostridium Difficile A/B, PCR Not Detected (NotDetected); Cryptosporidium Not Detected (NotDetected); Cyclospora Cayetanesis Not Detected (NotDetected); Entamoeba histolytica Not Detected (NotDetected); Enteroaggregative E coli Not Detected (NotDetected); Enterotoxigenic E coli Not Detected (NotDetected); Giardia lamblia Not Detected (NotDetected); Microscopic, Urine URINE MICROSCOPIC (MICROSCOPIC); Norovirus Not Detected (NotDetected); Plesimonas Shigalloides, PCR Not Detected (NotDetected); Rotavirus A Not Detected (NotDetected); Salmonella, PCR Not Detected (NotDetected); Sapovirus Not Detected (NotDetected); Shiga-like toxin E coli Not Detected (NotDetected); Shigella Enterovasive E coli Not Detected (NotDetected); Vibrio Cholerae Not Detected (NotDetected); Vibrio, PCR Not Detected (NotDetected); Yersinia Entercolitica, PCR Not Detected (NotDetected)
[2025-01-04 13:14] LABS: Appearance,Urine CLEAR (Clear); Bilirubin,Urine Negative (Negative); Blood, Urine Negative (Negative); Color,Urine YELLOW (Yellow); Glucose,Urine (UA) 3+ (Negative); Ketones,Urine Negative (Negative); Leukocyte Esterase,Urine Negative (Negative); Nitrate,Urine Negative (Negative); Protein,Urine Negative (Negative); Urobilinogen,Urine 0.2 EU/dl (0.2)
[2025-01-04 13:32] LABS: HIV Combo NEGATIVE (Negative)
[2025-01-04 13:37] LABS: Squamous Epithelial Cell,Urine Occasional #/hpf (0-5); WBC,Urine Occasional #/hpf (0-3)
[2025-01-04 13:39] LABS: Hepatitis C Ab Qual. W/ RFX NEGATIVE (Negative)
[2025-01-04 14:18] VITALS: BP 134/78; PULSE 67; RESP 20; TEMP 37; O2SAT 98
[2025-01-04 16:57] LABS: Enteropathogenic E coli Detected (NotDetected)
--- NOTE | 2025-01-04 19:33 | PC.NURSE ---
MD Shyam notified of positive diarrhea panel results. MD attempted to call patient with results, no answer but message left to return a call to ED.
--- NOTE | 2025-01-05 09:08 | PC.NURSE ---
I spoke with about the pts stool results. no change needed in treatment plan.
--- NOTE | 2025-01-05 11:41 | PC.NURSE ---
The pt called and requested his lab results. I conveyed to stool results. He states he is no longer having symptoms.
== END 2025-01-04 14:20 | disposition home or self-care (01) ==
PROVIDERS: Emergency Provider Student in an Organized Health Care Education/Training Program; PCP Family Medicine
DX: R10.9 Unspecified abdominal pain (principal); R10.816 Epigastric abdominal tenderness; R19.7 Diarrhea, unspecified; Z87.891 Personal history of nicotine dependence; Z11.59 Encounter for screening for other viral diseases; Z11.4 Encounter for screening for human immunodeficiency virus [HIV]
CPT/HCPCS: 74177; 80053; 81001; 83690; 84484; 85025; 86803; 87389; 87507; 96360; 96361; 96374; 96375; 99285; J0131; J2405; J7120; Q9967

== ENCOUNTER 2025-04-03 17:52 | Emergency (ER) | payer MEDICARE, OTHER, SELFPAY ==
--- OUTSIDE RECORDS SUMMARY | 2025-02-08 09:20 | XMS_ITS | Encounter Summary ---
[facility] Organization 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 Name Role Phone Vianey Call MD Primary Care Provider + Reason for Referral * MRI/CAT/PET Scan (Routine) - Closed Specialty Diagnoses / Procedures [facility] Referred To Contact Radiology Diagnoses Family history of ischemic heart disease Procedures CT Angio Abdominal Aorta Bilateral Iliofem Runoff With & Without Contrast Pan Barrera MD [facility] [place] [address] Phone: tel: fax: [address] [phone] Phone: tel: Referral ID Status Reason Start Date Expiration Date Visits Re quested Visits Authorized [id number] Closed 01/23/2025 04/24/2026 1 1 Reason for Visit * MRI/CAT/PET Scan (Routine) - Closed Specialty Diagnoses / Procedures [facility] Referred To Contact Radiology Diagnoses Family history of ischemic heart disease Procedures CT Angio Abdominal Aorta Bilateral Iliofem Runoff With & Without Contrast Pan Barrera MD [facility] [place] [address] Phone: tel: fax: [address] [address] Phone: tel: Referral ID Status Reason Start Date Expiration Date Visits Re quested Visits Authorized [id number] Closed 01/23/2025 04/24/2026 1 1 Encounter Details Date Type Department Care Team (Latest Contact Info) Description 02/08/2025 9:20 AM EDT - 02/08/2025 11:59 PM EDT Hospital Encounter [facility] [address] [place] [address] Pan Barrera MD [address] [facility] [address] [place] [address] Family history of ischemic heart disease Discharge Disposition: Home or Self Care Social History Tobacco Use Types Packs/Day Years Used Date Smoking Tobacco: Never Smokeless Tobacco: Former Chew Alcohol Use Standard Drinks/Week Comments Yes 0 (1 standard drink = 0.6 oz pur e alcohol) occasionally Sex and Gender Information Value Date Recorded Sex Assigned at Male 01/25/2025 3:40 PM EDT Legal Sex Male 7:54 PM EDT Gender Identity Not on file Sexual Orientation Not on file documented as of this encounter Medications at Time of Discharge Accu-Chek Berna Plus test strip 1 each by Other route Daily. ICD-10 E11.65 100 each 3 12/14/2023 aspirin 81 MG EC tablet Take 1 tablet by mouth Daily. Evolocumab (Repatha) solution prefilled syringe injection Inject 1 mL under the skin into the appropriate area as directed Every 14 (Fourteen) Days. fluticasone (FLONASE) 50 MCG/ACT nasal spray SHAKE LIQUID AND USE 1 SPRAY IN EACH NOSTRIL EVERY DAY NEEDED 09/30/2022 glimepiride (AMARYL) 4 MG tablet Take 1 tablet by mouth Every Morning Before Breakfast. 90 tablet 3 01/06/2025 Jardiance 25 MG tablet Take 25 mg by mouth Daily. 30 tablet 5 10/18/2020 levothyroxine (SYNTHROID, LEVOTHROID) 137 MCG tablet Take 1 tablet by mouth Daily. 90 tablet 3 10/08/2022 metoprolol tartrate (LOPRESSOR) 50 MG tablet Take 1 tablet by mouth 2 (Two) Times a Day. 04/12/2020 montelukast (SINGULAIR) 10 MG tablet Take 1 tablet by mouth Every Evening. 09/22/2022 omeprazole (priLOSEC) 20 MG capsule Take 1 capsule by mouth Daily. 05/04/2020 tamsulosin (FLOMAX) 0.4 MG capsule 24 hr capsule Take 2 capsules by mouth Daily. 06/04/2020 Tirzepatide (Mounjaro) 5 MG/0.5ML solution auto-injector Inject 0.5 mL under the skin into the appropriate area as directed Every 7 (Seven) Days. 2 mL 2 12/23/2024 documented as of this encounter Plan of Treatment Upcoming Encounters Date Type Department Care Team (Late st Contact Info) Description 09/20/2025 3:15 PM EST Office Visit [facility] [address] [phone] Abdullahi Canseco MD [address] [facility] [address] [place] [address] documented as of this encounter Procedures Procedure Name Priority Date/Time Associated Diagnosis Comments CT ANGIO ABDOMINAL AORTA BILAT ILIOFEM RUNOFF Routine 02/08/2025 9:45 AM EDT Family history of ischemic heart disease documented in this encounter Results * CT Angio Abdominal Aorta Bilateral Iliofem Runoff (02/08/2025 9:45 AM EDT) Anatomical Region Laterality Modality Vascular, Chest, Abdomen N/A Compute d Tomography 02/14/2025 1:28 PM EDT Impressions 02/14/2025 1:39 PM EDT Impression: 1.No significant aortoiliac or femoropopliteal arterial occlusive disease identified. 2.No significant infrapopliteal arterial occlusive disease identified. 3.Hepatic steatosis. 4.Colonic diverticulosis without finding to suggest diverticulitis. 5.Additional findings as given above. Electronically Signed: Nick James MD 02/14/2025 1:39 PM EDT Workstation ID: [id number] Narrative 02/14/2025 1:[address] ANGIO ABDOMINAL AORTA BILAT ILIOFEM RUNOFF Date of Exam: 02/08/2025 9:21 AM EDT Indication: Z82.49. Bilateral lower extremity pain, family history of ischemic heart disease. Comparison: None available. Technique: CTA of the abdomen, pelvis and both lower extremities was performed after the uneventful intravenous administration of Isovue nonionic contrast. Reconstructed coronal and sagittal images were also obtained. In addition, a 3-D volume rendered image was created for interpretation. Automated exposure control and iterative reconstruction methods were used. Findings: Vascular: The celiac trunk, SMA and SHEN widely patent. Renal arteries appear widely patent. The abdominal aorta is normal caliber. Sparse calcified plaquing is noted in the abdominal aorta. Right side: The right common, internal and external iliac segments are free of stenosis. The right common femoral demonstrates mild plaquing but no significant stenosis. The right femoral bifurcation, profunda and SFA appear free of stenosis. The right popliteal and infrapopliteal segments are free of stenosis. Left side: The left common, internal and external iliac segments are free of stenosis. The left common femoral and femoral bifurcation are free of stenosis. The left SFA and popliteal segments are free of stenosis. Below the knee on the left, there is intact three-vessel runoff to the foot. Nonvascular visualized lung bases are clear. The spleen, pancreas, adrenals, kidneys, have a grossly normal appearance. There is relative hypodensity throughout the liver suggesting steatosis. Gallbladder is absent. The stomach and small bowel have a grossly normal caliber and appearance. There is no evidence of bowel obstruction, free air or free fluid. The appendix is normal. Descending and sigmoid colonic diverticulosis is noted without finding to suggest diverticulitis. Prostate is enlarged. There is fine calcification or enhancement in the posterior right aspect of the prostate, which may indicate infection/inflammation or neoplasm. Recommend correlation with PSA. Urinary bladder is grossly unremarkable. No adenopathy identified in the abdomen or pelvis. Left retroaortic renal vein incidentally noted. There is degenerative change in the spine. There is bony ankylosis of the SI joints. Degenerative change in the pubic symphysis and hips also noted. No aggressive osseous lesion identified. Procedure Note Nick James MD - 02/14/2025 CT ANGIO ABDOMINAL AORTA BILAT ILIOFEM RUNOFF Date of Exam: 02/08/2025 9:21 AM EDT Indication: Z82.49. Bilateral lower extremity pain, family history ofischemic heart disease. Comparison: None available. Technique: CTA of the abdomen, pelvis and both lower extremities wasperformed after the uneventful intravenous administration of Isovuenonionic contrast. Reconstructed coronal and sagittal images were alsoobtained. In addition, a 3-D volume rendered image was created for interpretation. Automated exposure control anditerative reconstruction methods were used. Findings: Vascular: The celiac trunk, SMA and SHEN widely patent. Renal arteries appear widelypatent. The abdominal aorta is normal caliber. Sparse calcified plaquingis noted in the abdominal aorta. Right side: The right common, internal and external iliac segments are free ofstenosis. The right common femoral demonstrates mild plaquing but nosignificant stenosis. The right femoral bifurcation, profunda and SFAappear free of stenosis. The right popliteal and infrapopliteal segments are free of stenosis. Left side: The left common, internal and external iliac segments are free ofstenosis. The left common femoral and femoral bifurcation are free ofstenosis. The left SFA and popliteal segments are free of stenosis. Belowthe knee on the left, there is intact three-vessel runoff to the foot. Nonvascular visualized lung bases are clear. The spleen, pancreas,adrenals, kidneys, have a grossly normal appearance. There is relativehypodensity throughout the liver suggesting steatosis. Gallbladder isabsent. The stomach and small bowel have a grossly normal caliber and appearance.There is no evidence of bowel obstruction, free air or free fluid. Theappendix is normal. Descending and sigmoid colonic diverticulosis is notedwithout finding to suggest diverticulitis. Prostate is enlarged. There is fine calcification or enhancement in theposterior right aspect of the prostate, which may indicateinfection/inflammation or neoplasm. Recommend correlation with PSA. Urinary bladder is grossly unremarkable. No adenopathy identified in theabdomen or pelvis. Left retroaortic renal vein incidentally noted. There is degenerative change in the spine. There is bony ankylosis of theSI joints. Degenerative change in the pubic symphysis and hips also noted.No aggressive osseous lesion identified. IMPRESSION: Impression: 1.No significant aortoiliac or femoropopliteal arterial occlusive diseaseidentified. 2.No significant infrapopliteal arterial occlusive disease identified. 3.Hepatic steatosis. 4.Colonic diverticulosis without finding to suggest diverticulitis. 5.Additional findings as given above. Electronically Signed: Nick James MD 02/14/2025 1:39 PM EDT Workstation ID: [id number] Pan Barrera MD IMG CT ORDERABLES Final Result documented in this encounter Visit Diagnoses Diagnosis Family history of ischemic heart disease documented in this encounter Administered Medications Inactive Administered Medications - up to 3 most recent administrations Medication Order MAR Action Action Date Dose Rate Site iopamidol (ISOVUE-370) 76 % injection 123 mL 123 mL, Intravenous, Once in Imaging, On Thu02/08/25 at 0957, For 1 dose Given 02/08/2025 9:39 AM EDT 123 mL L eft Arm documented in this encounter Care Teams Railway Switch Operator Relationship Specialty Start Date End Date Vianey Call MD [address] [place] [id number] PCP - General Family Medicine 04/16/20 documented as of this encounter
[2025-04-03 17:54] VITALS: BP 156/78; PULSE 77; RESP 18; TEMP 36.8; O2SAT 98; BMI 29.3
--- OUTSIDE RECORDS SUMMARY | 2025-04-03 18:02 | XMS_ITS | Encounter Summary ---
Author Organization Healthcare Address [address] [place] [address] Care Team Providers Care Director Of Market Analysis Name Role Phone Vianey Call MD Primary Care Provider [phone] Makayla Feliciano APRN Unavailable [phone] Alan Parekh MD Unavailable + [phone] Reason for Visit * Reason Onset Date Comments Med Refill 03/01/2025 Encounter Details Date Type Department Care Team (Late st Contact Info) Description 03/01/2025 Refill [facility] [place] [facility] [address] [place] [address] Francine James RN [facility] Social History Tobacco Use Types Packs/Day Years Used Date Smoking Tobacco: Never Passive Smoke Exposure: Never Smokeless Tobacco: Never Alcohol Use Standard Drinks/Week Comments Yes 0 (1 standard drink = 0.6 oz pure alcohol) Alcoholic Drinks/day: Occasional alcohol use PHQ-2 Answer Date Recorded Patient Health Questionnaire-2 Score 0 01/03/2025 PHQ-9 Answer Date Recorded Patient Health Questionnaire-9 Score 0 01/03/2025 Sex and Gender Information Value Date Recorded Sex Assigned at Male 02/08/2021 1:33 PM EDT Legal Sex Male 6:57 PM EDT Gender Identity Male 02/08/2021 1:33 PM EDT Sexual Orientation Straight 02/08/2021 1: 33 PM EDT documented as of this encounter Plan of Treatment Upcoming Encounters Date Type Department Care Team (Late st Contact Info) Description 01/02/2026 11:40 AM EDT Office Visit [facility] [address] [place] [address] Santy Brooks MD [address] [place] [address] documented as of this encounter Visit Diagnoses Not on filedocumented in this encounter Additional Health Concerns Assessment Noted Time PHQ-9 Depression Total Score: 0 01/04/20 25 9:13 AM EDT A fall risk assessment has been complete d for the patient 01/03/2025 9:13 AM EDT A Body Mass Index follow-up plan has been documented for the patient 01/03/2025 10:06 AM EDT documented as of this encounter Care Teams Director Of Market Analysis Relationship Specialty Start Date End Date Vianey Call MD [address] [place] [address] [address] [place] [address] PCP - General 01/04/21 Makayla Feliciano APRN [address] [place] [address] Nurse Practitioner Neurosurgery 03/14/21 Alan Parekh MD [address] [place] [address] Surgeon Neurosurgery 04/12/21 documented as of this encounter
--- OUTSIDE RECORDS SUMMARY | 2025-04-03 18:04 | XMS_ITS | Clinical Summary ---
Author Organization Healthcare Address [address] [place] [address] Care Team Providers Care Inspector Optical Instrument Name Role Phone Vianey Call MD Primary Care Provider [phone] Makayla Feliciano APRN Unavailable [phone] Alan Parekh MD Unavailable [phone] Allergies Active Allergy Reactions Criticality Noted Date Comments Codeine Itching Medium 09/26/2016 Dulaglutide Rash Low 11/03/2023 Sitagliptin Other - please document in the comment field High 01/29/2017 Caused Pancriatitus Lisinopril Cough Low 09/30/2022 Semaglutide(0.25 Or 0.5mg-Dos) Diarrhea High 11/03/2023 Tramadol Other - please document in the comment field Low 02/22/2021 Hypotension, light sensitivity Medications aspirin 81 MG EC tablet Take 1 tablet (81 mg) by mouth 1 (one) time each day. Active cholecalciferol (Vitamin D-3) 125 MCG (5000 UT) capsule Take 1 capsule by mouth daily. 7 Active coenzyme Q-10 200 MG capsule Take 1 capsule by mouth daily. 1 Active metoprolol tartrate (Lopressor) 50 MG tablet Take 1 tablet by mouth 2 times a day. 1 Active omeprazole (PriLOSEC) [address] capsule Take 1 capsule by mouth daily. 1 Active tamsulosin (Flomax) 0.4 MG 24 hr capsule Take 1 capsule by mouth nightly. 0 Active empagliflozin (Jardiance) 25 MG Take 1 tablet by mouth daily. 1 Active azelastine (Astelin) 0.1 % nasal spray Administer 2 sprays into each nostril 2 times a day as needed for rhinitis or allergies. Active levothyroxine (Synthroid, Levoxyl) 137 MCG tablet Take 1 tablet (137 mcg) by mouth 1 (one) time each day. 3 Active montelukast (Singulair) 10 MG tablet 1 (one) time each day in the evening. 3 Active metFORMIN XR (Glucophage-XR) 500 MG 24 hr tablet Take 2 tablets by mouth 1 time each day with dinner. 3 Active glimepiride (Amaryl) 4 MG tablet Take 1 tablet by mouth daily before breakfast. 3 Active fluticasone (Flonase) 50 MCG/ACT nasal spray Administer 1 spray into each nostril 1 (one) time each day. 3 Active Multiple Vitamins-Minerals (PRESERVISION AREDS PO) Take by mouth 1 (one) time each day. Active nitroglycerin (Nitrostat) 0.4 MG SL tabletIndications: ASCVD (arteriosclerotic cardiovascular disease) Place 1 tablet (0.4 mg) under the tongue every 5 (five) minutes if needed for chest pain. 25 tablet 4 Active methocarbamol (Robaxin) 750 MG tablet Take 1 tablet by mouth nightly. 5 Active Mounjaro 5 MG/0.5ML solution auto-injector solution pen-injector Inject 0.5 mL under the skin once a week. 5 Active Evolocumab (Repatha SureClick) 140 MG/ML solution auto-injector autoinjector Inject 1 mL under the skin every 14 days. 6.3 mL 3 5 Active Active Problems Problem Noted Date Diagnosed Date Abdominal pain 04/22/2024 Abnormal glucose level 04/22/2024 Abnormal liver function tests 04/22/2024 Acute sinusitis 04/22/2024 Allergic rhinitis 04/22/2024 Chronic recurrent sinusitis 04/22/2024 Chronic right-sided thoracic back pain 4 Diarrhea 04/22/2024 Diarrhea, infectious, adult 04/22/2024 Disorder of prostate 04/22/2024 Disorder of urinary tract 04/22/2024 Encounter for screening for severe acute respiratory syndrome coronavirus 2 (SARS-CoV-2) infection 04/22/2024 Facet syndrome 04/22/2024 Finger fracture, left 04/22/2024 Herpes zoster 04/22/2024 Influenza A 04/22/2024 Inguinal pain 04/22/2024 Malaise and fatigue 04/22/2024 Medial epicondylitis 04/22/2024 Pain, joint, shoulder, left 04/22/2024 Spasm of back muscles 04/22/2024 Spasm 04/22/2024 Ulcer of nose 04/22/2024 Bronchitis 04/22/2024 Otitis 04/22/2024 Disorder of pancreas 04/22/2024 Type 2 diabetes mellitus with other specified co mplication 04/22/2024 Overview (04/22/2024): Followed by endocrinology Type 2 diabetes mellitus 04/22/2024 Overview (04/22/2024): Followed by endocrinology Gastroesophageal reflux disease 04/22/2024 GERD without esophagitis 04/22/2024 Hyperlipidemia, acquired 04/22/2024 Atherosclerosis of [place] co ronary artery of [place] heart without angina pectoris 10/07/2022 Overview (04/22/2024): Last Assessment & Plan: Continue ASA, repatha and SGLT-2 inhibitor. Intolerant of GLP-1 RA. Followed by cardiology. History of chest pain. Followed by cardiology. History of chest pain. Followed by cardiology Benign prostatic hyperplasia 06/23/2022 Enlarged prostate 06/23/2022 Nocturia 06/23/2022 Retrograde ejaculation 06/23/2022 History of percutaneous coronary intervention Arthritis 02/22/2021 Spinal stenosis of lumbar region 02/21/2021 Overview (02/21/2021): Added automatically from request for surgery [id number] Drainage from wound 12/07/2020 Left leg pain 12/07/2020 Bleeding tendency 10/12/2020 Low back pain 10/12/2020 Lumbar disc herniation 10/12/2020 Lumbar radiculopathy, chronic 10/12/2020 Benign hypertension 07/06/2020 Overview (02/22/2021): Last Assessment & Plan: Hypertension is unchanged. Continue current treatment regimen. Blood pressure will be reassessed in 3 months. Uncontrolled type 2 diabetes mellitus with hyper glycemia 07/06/2020 Overview (02/22/2021): Last Assessment & Plan: Diabetes is worsening. Continue current treatment regimen. Diabetes will be reassessed in 3 months. A1c above goal but has been on steroids. Type 2 diabetes mellitus with hyperglycemia 06/24 Overview (04/22/2024): Last Assessment & Plan: Diabetes is worsening. Had recent steroids. We discussed treatment options. He didn't tolerated GLP-1 RA. We discussed trial of pioglitazone. Diabetes will be reassessed in 6 months. Fatty liver 07/06/2020 Overview (04/22/2024): Last Assessment & Plan: Recent LFTs okay. Continue weight loss efforts. He didn't tolerate GLP-1 RA. We discussed option of pioglitazone. ASCVD (arteriosclerotic cardiovascular disease) 03/27/2020 Abnormal cardiovascular function study 0 Abnormal EKG 03/15/2020 Impotence 05/06/2018 Mild vitamin D deficiency 09/29/2016 HTN (hypertension) 09/26/2016 Hyperlipidemia 09/26/2016 Lumbago 09/26/2016 Primary hypothyroidism 09/26/2016 Overview (09/30/2022): Last Assessment & Plan: Check TSH today. Last Assessment & Plan: Check TSH today. Diabetes 09/25/2016 GERD (gastroesophageal reflux disease) 7 Sciatica 09/25/2016 Resolved Problems Problem Noted Date Diagnosed Date Resolved Date Fatty liver 07/06/2020 02/22/2021 Immunodeficiency disorder 09/26/2016 Encounters Date Type Department Care Team Description 03/01/2025 Refill [facility] [address] [place] [address] Francine James RN 01/03/2025 9:20 AM EDT Office Visit [facility] [address] [place] [address] Santy Brooks MD ASCVD (arteriosclerotic cardiovascular disease) (Primary Dx); Mixed hyperlipidemia 01/03/2025 Travel from Last 3 Months Immunizations Immunization Administration Dates Next Due Hep A, Adult 06/30/2019,08/09/2018 Influenza, Unspecified 09/05/2024 Influenza, injectable, quadrivalent, preservativ e free 07/24/2023 Influenza, recombinant, quad rivalent, injectable, preservative free 04/22/2018 Influenza, seasonal, injectable, preservative fr ee 09/15/2024 Pneumococcal Polysaccharide PPV23 02/10/2022 Td (adult) 04/16/2022,03/05/2011 Tdap 03/05/2018 Zoster, Recombinant 02/16/2023,02/10/2022 Family History Medical History Relation Name Comments Hypertension Father Hypertension Mother Diabetes Other 1 Hypertension Other 2 Anesthesia problems Neg Hx Malig Hyperthermia Neg Hx Relation Name Status Comments Father Mother Other 1 Other 2 Social History Tobacco Use Types Packs/Day Years Used Date Smoking Tobacco: Never Passive Smoke Exposure: Never Smokeless Tobacco: Never Tobacco Cessation:Counseling Given: No Alcohol Use Standard Drinks/Week Comments Yes 0 [...] Orientation Straight 02/08/2021 1: 33 PM EDT Last Filed Vital Signs Vital Sign Reading Time Taken Comments Blood Pressure 130/87 01/03/2025 9:13 AM EDT Pulse 83 01/03/2025 9:13 AM EDT Temperature 36.7 C (98.1 F) 02/27/2021 12:08 PM EDT Respiratory Rate 16 01/03/2025 9:13 AM EDT Oxygen Saturation 96% 01/03/2025 9:13 AM EDT Inhaled Oxygen Concentration - - Weight 95 kg (209 lb 7 oz) 01/03/2025 9:13 AM ED T Height 175.3 cm (5' 9 ) 01/03/2025 9:13 AM EDT Body Mass Index 30.93 01/03/2025 9:13 AM EDT Plan of Treatment Upcoming Encounters Date Type Department Care Team (Late st Contact Info) Description 01/02/2026 11:40 AM EDT Office Visit [facility] [place] [facility] [address] [place] [address] Santy Brooks MD [address] [place] [address] Health Maintenance Due Date Last Done Comments [facility]-Hepatitis C Screening 1960 [facility]-/Child/Adol SDOH Screenings 1960 Diabetes: Dental Exam 1970 [facility]- SDOH Screenings 1978 [facility]-Adult SDOH Screenings 1978 CT Colonography 2005 Colonoscopy 2005 FIT-DNA 2005 FIT 2005 FOBT 2005 Sigmoidoscopy 2005 [facility]-Colorectal Cancer Screening 2005 [facility]-RSV Vaccine: 60+ Years or (1 - Risk 60-74 years 1-dose series) 2020 [facility]-Pneumococcal Vaccine: 50+ Years (2 of 2 - PCV) 02/10/2023 02/10/2022 [facility]-Diabetes: Hemoglobin A1C 02/02/202407/2024, 10/12/2020, 10/13/2016 [id number] Vaccine ( season) 2024 04/28/2024, 07/24/2023, 07/26/2021, Additional history exists [facility]-Influenza Vaccine (#1) 04/24/202509/15, 09/05/2024, 07/24/2023, Additional history exists [facility]-Medicare Annual Wellness (AWV) 09/13/2025 09/13/2024, 09/09/2023 [facility]-Depression Screening 01/03/2026 01/03/2025, 12/22 [facility]-DTaP,Tdap,and Td Vaccines (3 - Td or Tdap) 04/16/2032 04/16/2022, 03/05/2018, 03/05/2011 [facility]-Hepatitis A Vaccines Completed 06/30/2019, 07/24 [facility]-Zoster Vaccines Completed 02/16/2023, [facility]-Obesity Intervention Completed 025, 05/10/2024, 11/03/2023, Additional history exists HPV Vaccines Aged Out No longer eligi ble based on patient's age to complete this topic [facility]-HIB Vaccines Aged Out No longer e ligible based on patient's age to complete this topic [facility]-IPV Vaccines Aged Out No longer e ligible based on patient's age to complete this topic [facility]-Rotavirus Vaccines Aged Out No lo nger eligible based on patient's age to complete this topic Procedures Procedure Name Priority Date/Time Associated Diagnosis Comments ECG ADULT Routine 01/03/2025 9:47 AM EDT ASCVD (arteriosclerotic cardiovascular disease) EXTRA TUBE LIGHT GREEN TOP Routine 01/03/2025 9:43 AM EDT ASCVD (arteriosclerotic cardiovascular disease) EXTRA TUBES Routine 01/03/2025 9:43 AM EDT ASCVD (arteriosclerotic cardiovascular disease) LIPID PROFILE, PLASMA Routine 01/03/2025 9:43 AM EDT ASCVD (arteriosclerotic cardiovascular disease) Mixed hyperlipidemia HEMOGLOBIN A1C Routine 11/03/2023 9:20 AM EDT ASCVD (arteriosclerotic cardiovascular disease) Uncontrolled type 2 diabetes mellitus with hyperglycemia (CMS/HCC) Mixed hyperlipidemia from Last 3 Months or Most Recently Relevant to Health Maintenance Results * ECG Adult (Now - Performed in your clinic) (01/03/2025 9:47 AM EDT) EKG DIAGNOSIS CLASS Normal MUSE ECG Ventricular Rate 81 BPM MUSE ECG Atrial Rate 81 BPM MUSE ECG UT Interval 188 ms MUSE ECG QRSD Interval 90 ms MUSE ECG QT Interval 358 ms MUSE ECG QTC Interval 415 ms MUSE ECG P Carlos 31 degrees MUSE ECG R Carlos 41 degrees MUSE ECG T Wave Carlos 36 degrees MUSE ECG Diagnosis Normal sinus rhythm MUSE ECG Diagnosis Normal ECG MUSE ECG Diagnosis MUSE ECG Diagnosis Confirmed by Jemma Lora ([id number]) on 01/03/2025 2:23:58 PM MUSE ECG 01/03/2025 9:47 AM EDT 01/03/2025 2:23 PM EDT Santy Brooks MD ECG ORDERABLES Final Result MUSE ECG * Light Green Top (01/03/2025 9:43 AM EDT) Pathologist [facility] Extra Hold for add-ons 01/03/2025 1:01 PM EDT [facility] Comment:Auto resulted. Blood Venous blood specimen / Unknown Venipuncture / Unknown 01/03/2025 9:43 AM EDT 01/03/2025 10:14 AM EDT Santy Brooks MD LAB BLOOD ORDERABLES Final Res ult [facility] [address] [place] [address] * (ABNORMAL) Lipid panel (01/03/2025 9:43 AM EDT) Pathologist [facility] Cholesterol, Plasma 105 <200 mg/dL 01/03/2025 10:32 AM EDT [facility] Comment: Cholesterol Reference Range (age >17 years): Desirable <200 mg/dL Borderline 200 to 239 mg/dL Undesirable >239 mg/dL HDL 45 >=40 mg/dL 01/03/2025 10:32 AM EDT [facility] Comment: HDL Cholesterol Reference Ranges (age >17 years): Female, acceptable > or = 50 mg/dL Male, acceptable > or = 40 mg/dL Triglycerides, Plasma 164(H) <150 mg/dL 01/03/2025 10:32 AM EDT [facility] Comment: Triglyceride Reference Range (age >17 years): Desirable: <150 mg/dL Borderline high: 150 to 199 mg/dL High: 200 to 499 mg/dL Very high: >499 mg/dL Increased risk of pancreatitis: >1000 mg/dL Cholesterol/HDL Ratio 2 01/03/2025 10:32 AM EDT [facility] LDL, Calculated 33 <100 mg/dL 10:32 AM EDT [facility] Comment: LDL Cholesterol Reference Range (age >17 years): Optimal: <100 mg/dL Near or above optimal: 100 - 129 mg/dL Borderline high: 130 - 159 mg/dL High: 160 - 189 mg/dL Very high: >189 mg/dL LDL Cholesterol Reference Range (age <18 years): Desirable: <110 mg/dL Borderline: 110 - 129 mg/dL Undesirable: >130 mg/dL LDL Cholesterol is calculated using the Pino/NIH equation. Fasting greater than or equal to 12 hours? Unknown 01/03/2025 10:32 AM EDT [facility] Blood Venous blood specimen / Unknown Venipuncture / Unknown 01/03/2025 9:43 AM EDT 01/03/2025 10:02 AM EDT us Santy Brooks MD LAB BLOOD ORDERABLES Final Res ult [facility] [address] [place] [address] * (ABNORMAL) Hemoglobin A1c (11/03/2023 9:20 AM EDT) Hemoglobin A1c 8.7(H) <5.7 % 11/03/2023 3:10 PM EDT [facility] Blood Venous blood specimen / Unknown Venipuncture / Unknown 11/03/2023 9:20 AM EDT 11/03/2023 9:32 AM EDT Narrative [facility] - 11/03/2023 3:10 PM EDT HA1C Interpretive Data: Diagnosis of Diabetes: Diabetic > or = 6.5% Pre-diabetic 5.7 to 6.4% Non-diabetic < or = 5.6% Glycemic Targets for Type I and Type II Diabetics: Non- Adults <7.0% Adults <6.0% Children and Adolescents <7.5% Source: [place] [employer]. Standards of medical care in diabetes,2017. Diabetes Care.2017:40 (suppl 1):S1-S135. HbA1c assay performed by an ion-exchange chromatography method that is certified traceable to the DCCT. Santy Brooks MD LAB BLOOD ORDERABLES Final Res ult [facility] [address] [place] [address] from Last 3 Months or Most Recently Relevant to Health Maintenance [place] [address] [employer] MEDICARE Advance Directives * Full Code (Latest Code Status on File) Date Activated Date Inactivated Comments 02/27/2021 12:04 PM 02/28/2021 4:01 AM Question Answer Comments Patient has decision-making capacity? Yes Care Teams Inspector Optical Instrument Relationship Specialty Start Date End Date Vianey Call MD [address] [facility] [address] [place] [address] PCP - General 01/04/21 Makayla Feliciano APRN [address] [facility] [address] [place] [address] Nurse Practitioner Neurosurgery 03/14/21 Alan Parekh MD [address] [place] [address] Surgeon Neurosurgery 04/12/21
--- OUTSIDE RECORDS SUMMARY | 2025-04-03 18:05 | XMS_ITS | Clinical Summary ---
Author Organization [facility] Address [address] [place] [address] Care Team Providers Care Attenuator Name Role Phone Vianey Call MD Primary Care Provider + Allergies Active Allergy Reactions Criticality Noted Date Comments Codeine Itching Medium 09/26/2016 Dulaglutide Rash Low 11/03/2023 Lisinopril Cough Low 09/30/2022 Semaglutide(0.25 Or 0.5mg-Dos) Diarrhea High 11/02 Sitagliptin GI Intolerance High 01/29/2017 Medications metoprolol tartrate (LOPRESSOR) 50 MG tablet Take 1 tablet by mouth 2 (Two) Times a Day. 0 Active omeprazole (priLOSEC) 20 MG capsule Take 1 capsule by mouth Daily. 0 Active tamsulosin (FLOMAX) 0.4 MG capsule 24 hr capsule Take 2 capsules by mouth Daily. 0 Active aspirin 81 MG EC tablet Take 1 tablet by mouth Daily. Active Jardiance 25 MG tablet Take 25 mg by mouth Daily. 30 tablet 5 1 Active fluticasone (FLONASE) 50 MCG/ACT nasal spray SHAKE LIQUID AND USE 1 SPRAY IN EACH NOSTRIL EVERY DAY NEEDED 3 Active montelukast (SINGULAIR) 10 MG tablet Take 1 tablet by mouth Every Evening. 3 Active levothyroxine (SYNTHROID, LEVOTHROID) 137 MCG tablet Take 1 tablet by mouth Daily. 90 tablet 3 3 Active Evolocumab (Repatha) solution prefilled syringe injection Inject 1 mL under the skin into the appropriate area as directed Every 14 (Fourteen) Days. Active Accu-Chek Berna Plus test strip 1 each by Other route Daily. ICD-10 E11.65 100 each 3 4 Active Tirzepatide (Mounjaro) 5 MG/0.5ML solution auto-injector Inject 0.5 mL under the skin into the appropriate area as directed Every 7 (Seven) Days. 2 mL 2 5 Active glimepiride (AMARYL) 4 MG tablet Take 1 tablet by mouth Every Morning Before Breakfast. 90 tablet 3 5 Active Active Problems Problem Noted Date Diagnosed Date Atherosclerosis of [place] co ronary artery of [place] heart without angina pectoris 10/07/2022 Assessment & Plan (01/26/2025 9:08 AM EDT): Continue ASA, repatha and SGLT-2 inhibitor. Assessment & Plan (07/08/2024 9:27 AM EST): Continue ASA, repatha and SGLT-2 inhibitor. Didn't tolerate GLP-1 RA. Assessment & Plan (12/14/2023 8:17 AM EDT): Continue ASA, repatha and SGLT-2 inhibitor. Intolerant of GLP-1 RA. Assessment & Plan (07/14/2023 9:46 AM EST): Continue ASA and SGLT-2 inhibitor. Try adding trulicity. Assessment & Plan (02/10/2023 8:15 AM EDT): Continue ASA, praluent and SGLT-2 inhibitor. Didn't tolerate GLP-1 RA. Assessment & Plan (10/07/2022 8:52 AM EST): Continue ASA, praluent and SGLT-2 inhibitor. Try adding GLP-1 RA. Hyperlipidemia 08/10/2020 Assessment & Plan (01/26/2025 9:08 AM EDT): Continue repatha. Recent lipids showed trigs a bit above goal. Work on diet/exercise. Assessment & Plan (07/08/2024 9:26 AM EST): On repatha. Assessment & Plan (12/14/2023 8:19 AM EDT): Continue repatha. Recent lipids looked good. Assessment & Plan (07/14/2023 9:39 AM EST): Cardiology note reports he is on repatha now. Assessment & Plan (02/10/2023 8:19 AM EDT): Continue praluent. Assessment & Plan (10/07/2022 8:51 AM EST): On praluent. Check lipids today. Type 2 diabetes mellitus with hyperglycemia 06/24 Assessment & Plan (01/26/2025 9:37 AM EDT): Diabetes is improving with treatment. A1c looks much better and he has lost weight. He has had some GI issues recently. We discussed decreasing the mounjaro or stopping metformin. He would prefer to stop the metformin first. Try stopping metformin. Diabetes will be reassessed in 6 months. 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 Assessment & Plan (07/08/2024 9:38 AM EST): Diabetes is improving with treatment. He stopped pioglitazone due to weight gain. Trial of mounjaro. May need PA for this since he didn't tolerate trulicity or ozempic. Diabetes will be reassessed in 6 months. Assessment & Plan (12/14/2023 8:25 AM EDT): Diabetes is worsening. Had recent steroids. We discussed treatment options. He didn't tolerated GLP-1 RA. We discussed trial of pioglitazone. Diabetes will be reassessed in 6 months. Assessment & Plan (07/14/2023 9:46 AM EST): Diabetes is worsening. We discussed treatment options. Trial of trulicity. Decrease metformin due to diarrhea. Diabetes will be reassessed in 3 months. Assessment & Plan (02/10/2023 8:19 AM EDT): Diabetes is improving with treatment. Continue current treatment regimen. Diabetes will be reassessed in 3 months. Assessment & Plan (10/07/2022 8:57 AM EST): Diabetes is worsening. Try adding GLP-1 RA. He reports h/o pancreatitis. We discussed risk of recurrence with GLP-1 RA. Diabetes will be reassessed in 3 months. Assessment & Plan (07/06/2020 11:08 AM EST): Diabetes is worsening. Continue current treatment regimen. Diabetes will be reassessed in 3 months. A1c above goal but has been on steroids. Benign hypertension 07/06/2020 Assessment & Plan (01/26/2025 9:07 AM EDT): Hypertension is stable and controlled. Continue current treatment regimen. Blood pressure will be reassessed in 6 months. Assessment & Plan (07/08/2024 9:26 AM EST): Hypertension is stable and controlled Continue current treatment regimen. Blood pressure will be reassessed in 6 months. Assessment & Plan (12/14/2023 8:16 AM EDT): Hypertension is stable and controlled Continue current treatment regimen. Blood pressure will be reassessed in 6 months.. Assessment & Plan (07/14/2023 9:37 AM EST): Hypertension is unchanged. Continue current treatment regimen. Blood pressure will be reassessed at the next regular appointment. Assessment & Plan (02/10/2023 8:14 AM EDT): Hypertension is unchanged. Continue current treatment regimen. Blood pressure will be reassessed at the next regular appointment. Assessment & Plan (10/07/2022 8:46 AM EST): Hypertension is unchanged. Continue current treatment regimen. Blood pressure will be reassessed at the next regular appointment. Assessment & Plan (07/06/2020 11:08 AM EST): Hypertension is unchanged. Continue current treatment regimen. Blood pressure will be reassessed in 3 months. Fatty liver 07/06/2020 Assessment & Plan (01/26/2025 9:09 AM EDT): Continue weight loss efforts. Continue mounjaro and jardiance. Assessment & Plan (07/08/2024 9:34 AM EST): Continue weight loss efforts. Continue SGLT-2 inhibitor. He stopped pioglitazone due to weight gain. He didn't tolerate GLP-1 RA. We discussed a trial of mounjaro. Assessment & Plan (12/14/2023 8:19 AM EDT): Recent LFTs okay. Continue weight loss efforts. He didn't tolerate GLP-1 RA. We discussed option of pioglitazone. Assessment & Plan (07/14/2023 9:37 AM EST): Plan to check LFTs next visit. Assessment & Plan (02/10/2023 8:19 AM EDT): Check LFTs today. Assessment & Plan (10/07/2022 8:51 AM EST): Check LFTs today. Primary hypothyroidism 07/06/2020 Assessment & Plan (07/08/2024 9:26 AM EST): Continue T4 tx. Check TSH. Assessment & Plan (12/14/2023 8:16 AM EDT): Continue T4. Check TSH. Assessment & Plan (07/06/2020 11:09 AM EST): Check TSH today. Hypothyroidism 07/18/2019 Assessment & Plan (01/26/2025 9:08 AM EDT): Continue levothyroxine. Check TSH. Assessment & Plan (12/14/2023 8:17 AM EDT): Continue T4 tx. Check TSH. Assessment & Plan (07/14/2023 9:37 AM EST): Continue T4 tx. Check TSH. Assessment & Plan (02/10/2023 8:14 AM EDT): Continue T4. Check TSH. Assessment & Plan (10/07/2022 8:42 AM EST): Continue T4. Check TSH. Encounters Date Type Department Care Team Description 02/08/2025 9:20 AM EDT - 02/08/2025 11:59 PM EDT Hospital Encounter [facility] AT [address] [phone] Pan Barrera MD Family history of ischemic heart disease Discharge Disposition: Home or Self Care 02/08/2025 Travel 01/27/2025 Results Follow-Up [facility] [address] [place] [address] Abdullahi Canseco MD 01/26/2025 9:00 AM EDT Office Visit [facility] [address] [place] [address] Abdullahi Canseco MD Type 2 diabetes mellitus with hyperglycemia, without long-term current use of insulin (Primary Dx); Benign hypertension; Mixed hyperlipidemia; Acquired hypothyroidism; Atherosclerosis of [place] coronary artery of [place] heart without angina pectoris; Fatty liver 01/26/2025 Travel 01/06/2025 Refill [facility] [address] [place] [address] Abdullahi Canseco MD from Last 3 Months Family History Medical History Relation Name Comments Diabetes Father Hypertension Father No Known Problems Mother Relation Name Status Comments Father Alive Mother Social History Tobacco Use Types Packs/Day Years Used Date Smoking Tobacco: Never Smokeless Tobacco: Former Chew Tobacco Cessation:Counseling Given: Not Answered Alcohol Use Standard Drinks/Week Comments Yes 0 (1 standard drink = 0.6 oz pur e alcohol) occasionally Sex and Gender Information Value Date Recorded Sex Assigned at Male 01/25/2025 3:40 PM EDT Legal Sex Male 7:54 PM EDT Gender Identity Not on file Sexual Orientation Not on file Last Filed Vital Signs Vital Sign Reading Time Taken Comments Blood Pressure 120/80 01/26/2025 8:46 AM EDT Pulse 86 01/26/2025 8:46 AM EDT Temperature 36.2 C (97.1 F) 09/07/2020 4:08 PM EST Respiratory Rate 16 04/16/2020 10:04 PM EDT Oxygen Saturation 97% 01/26/2025 8:46 AM EDT Inhaled Oxygen Concentration - - Weight 94.8 kg (209 lb) 01/26/2025 8:46 AM EDT Height 177.8 cm (5' 10 ) 01/26/2025 8:46 AM EDT Body Mass Index 29.99 01/26/2025 8:46 AM EDT Plan of Treatment Upcoming Encounters Date Type Department Care Team (Late st Contact Info) Description 09/20/2025 3:15 PM EST Office Visit [facility] [address] [phone] Abdullahi Canseco MD [address] [facility] [address] [place] [address] Health Maintenance Due Date Last Done Comments DIABETIC EYE EXAM 1970 DIABETIC FOOT EXAM 1970 COLOGUARD 2005 COLON CANCER SCREENING 5 YEA R SIGMOIDOSCOPY 2005 [address] COLONOGRAPHY 2005 FECAL OCCULT BLOOD TEST 2005 FIT Testing (1 year) 2005 ANNUAL WELLNESS VISIT 07/06/2020 HEPATITIS C SCREENING 07/06/2020 Pneumococcal Vaccine 50+ (2 of 2 - PCV) 02/10/2023 02/10/2022 COVID-19 Vaccine ( - 2023-2 5 season) 2024 04/28/2024, 07/24/2023, 07/26/2021, Additional history exists INFLUENZA VACCINE 05/24/2025 09/15/2024, , 09/05/2024, Additional history exists HEMOGLOBIN A1C 07/28/2025 01/26/2025, 06/24, 11/03/2023, Additional history exists LIPID PANEL 01/03/2026 01/03/2025, 12/22, 11/03/2023, Additional history exists URINE MICROALBUMIN-CREATININ E RATIO (uACR) 01/26/2026 01/26/2025, 12/14/2023 TDAP/TD VACCINES (3 - Td or Tdap) 04/16/2032 04/16/2022, 03/05/2018, 03/05/2011 COLONOSCOPY 07/27/2033 07/27/2023, 06/26, 08/24/2012 COLORECTAL CANCER SCREENING 07/27/2033 ZOSTER VACCINE Completed 02/16/2023, 02/10/2022 Procedures Procedure Name Priority Date/Time Associated Diagnosis Comments CT ANGIO ABDOMINAL AORTA BILAT ILIOFEM RUNOFF Routine 02/08/2025 9:45 AM EDT Family history of ischemic heart disease TSH Routine 01/26/2025 9:41 AM EDT Type 2 diabetes mellitus with hyperglycemia, without long-term current use of insulin MICROALBUMIN / CREATININE URINE RATIO Routine 01/26/2025 9:41 AM EDT Type 2 diabetes mellitus with hyperglycemia, without long-term current use of insulin COMPREHENSIVE METABOLIC PANEL Routine 01/26/2025 9:41 AM EDT Type 2 diabetes mellitus with hyperglycemia, without long-term current use of insulin POCT GLYCOSYLATED HEMOGLOBIN (HGB A1C) Routine 01/26/2025 9:13 AM EDT Type 2 diabetes mellitus with hyperglycemia, without long-term current use of insulin POCT GLUCOSE, BLD (NON STRIP) Routine 01/26/2025 9:01 AM EDT Type 2 diabetes mellitus with hyperglycemia, without long-term current use of insulin MICROALBUMIN / CREATININE URINE RATIO Routine 12/14/2023 8:32 AM EDT Type 2 diabetes mellitus with hyperglycemia, without long-term current use of insulin LIPID PANEL Routine 10/07/2022 9:02 AM EST Uncontrolled type 2 diabetes mellitus with hyperglycemia from Last 3 Months or Most Recently Relevant to Health Maintenance Results * CT Angio Abdominal Aorta Bilateral [...] MD 02/14/2025 1:39 PM EDT Workstation ID: [id number] Narrative 02/14/2025 1:[address] ANGIO [...] MD 02/14/2025 1:39 PM EDT Workstation ID: [id number] Pan Barrera MD [facility] [place] ORDERABLES Final Result * Microalbumin / Creatinine Urine Ratio - Urine, Clean Catch (01/26/2025 9:41 AM EDT) Only the most recent of2 resultswithin the time period is included. Microalbumin/C reatinine Ratio 01/26/2025 6:59 PM EDT [facility] Comment:Unable to calculate Creatinine, Urine 117.0 mg/dL 01/26/2025 6:59 PM EDT [facility] Microalbumin, Urine <1.2 mg/dL 01/26/2025 6:59 PM EDT [facility] Urine Urine specimen obtained by clean catch procedure / Unknown Collection / Unknown 01/26/2025 9:41 AM EDT 01/26/2025 9:42 AM EDT Abdullahi Canseco MD URINE ORDERABLES Final Re sult [facility]
[address] [place] [address], * TSH (01/26/2025 9:41 AM EDT) TSH 1.480 0.270 - 4.200 uIU/mL 01/26/2025 2:44 PM EDT [facility] Blood Structure of left upper limb / Unknown Venipuncture / Unknown 01/26/2025 9:41 AM EDT 01/26/2025 9:42 AM EDT Abdullahi Canseco MD LAB BLOOD ORDERABLES Tasha l Result [facility]
[address] [place] [address], * (ABNORMAL) Comprehensive Metabolic Panel (01/26/2025 9:41 AM EDT) Glucose 91 65 - 99 mg/dL 01/26/2025 2:38 PM EDT [facility] BUN 24.0(H) 8.0 - 23.0 mg/dL 01/26/2025 2:38 PM EDT [facility] Creatinine 1.18 0.76 - 1.27 mg/dL 01/26/2025 2:38 PM EDT [facility] Sodium 140 136 - 145 mmol/L 01/26/2025 2:38 PM EDT [facility] Potassium 4.2 3.5 - 5.2 mmol/L 01/26/2025 2:38 PM EDT [facility] Chloride 106 98 - 107 mmol/L 01/26/2025 2:38 PM [facility] CO2 22.5 22.0 - 29.0 mmol/L 01/26/2025 2:38 PM [facility] Calcium 9.1 8.6 - 10.5 mg/dL 01/26/2025 2:38 PM [facility] Total Protein 7.0 6.0 - 8.5 g/dL 01/26/2025 2:38 PM [facility] Albumin 4.4 3.5 - 5.2 g/dL 01/26/2025 2:38 PM [facility] ALT (SGPT) 23 1 - 41 U/L 01/26/2025 2:38 PM [facility] AST (SGOT) 21 1 - 40 U/L 01/26/2025 2:38 PM [facility] Alkaline Phosphatase 62 39 - 117 U/L 01/26/2025 2:38 PM [facility] Total Bilirubin 1.5(H) 0.0 - 1.2 mg/dL 01/26/2025 2:38 PM [facility] Globulin 2.6 gm/dL 01/26/2025 2:38 PM [facility] A/G Ratio 1.7 g/dL 01/26/2025 2:38 PM [facility] BUN/Creatinine Ratio 20.3 7.0 - 25.0 01/26/2025 2:38 PM [facility] Anion Gap 11.5 5.0 - 15.0 mmol/L 01/26/2025 2:38 PM [facility] eGFR 68.9 >60.0 mL/min/1.7 3 01/26/2025 2:38 PM [facility] Blood Structure of left upper limb / Unknown Venipuncture / Unknown 01/26/2025 9:41 AM EDT 01/26/2025 9:42 AM [facility] - 01/26/2025 2:38 PM EDT GFR Categories in Chronic Kidney Disease (CKD) GFR Category GFR (mL/min/1.73) Interpretation G1 90 or greater Normal or high (1) G2 60-89 Mild decrease (1) G3a 45-59 Mild to moderate decrease G3b 30-44 Moderate to severe decrease G4 15-29 Severe decrease G5 14 or less Kidney failure (1)In the absence of evidence of kidney disease, neither GFR category G1 or G2 fulfill the criteria for CKD. eGFR calculation 2020 CKD-EPI creatinine equation, which does not include race as a factor Abdullahi Canseco MD LAB BLOOD ORDERABLES Tasha l Result [facility]
[address] [place] [address], [place] [phone] * (ABNORMAL) POC Glycosylated Hemoglobin (Hb A1C) (01/26/2025 9:13 AM EDT) Hemoglobin A1C 6.2(A) 4.5 - 5.7 % [facility] Lot Number [id number] [facility] Expiration Date 10/19/26 [facility] Blood 01/26/2025 9:13 AM EDT Abdullahi Canseco MD POINT OF CARE TEST ORDERA BLES Final Result [facility]
[address] [place] [address], [place] [phone] * POC Glucose, Blood (01/26/2025 9:01 AM EDT) Glucose 96 70 - 130 mg/dL Lot Number [id number] Expiration Date 08/19/25 Blood 01/26/2025 9:01 AM EDT Abdullahi Canseco MD POINT OF CARE TEST ORDERA BLES Final Result from Last 3 Months or Most Recently Relevant to Health Maintenance Insurance [employer] PPO Care Teams Attenuator Relationship Specialty Start Date End Date Vianey Call MD [address] [place], [place] [phone] PCP - General Family Medicine 04/16/20
--- OUTSIDE RECORDS SUMMARY | 2025-04-03 18:05 | XMS_ITS | Encounter Summary ---
Author Organization [facility] Address [address] [place] [address] Care Team Providers Care House Shorer Name Role Phone Vianey Call MD Primary Care Provider + Encounter Details Date Type Department Care Team (Latest Contact Info) Description 02/08/2025 Travel Social History Tobacco Use Types Packs/Day Years [...] on file documented as of this encounter Plan of Treatment Upcoming Encounters Date Type Department Care Team (Late st Contact Info) Description 09/20/2025 3:15 PM EST Office Visit [facility] [address] [phone] Abdullahi Canseco MD [address] [facility] [address] [place], [place] [id number] documented as of this encounter Visit Diagnoses Not on filedocumented in this encounter Care Teams House Shorer Relationship Specialty Start Date End Date Vianey Call MD [address] [address] PCP - General Family Medicine 04/16/20 documented as of this encounter
--- NOTE | 2025-04-03 18:07 | XR_ITS ---
PROCEDURE INFORMATION: Exam: XR Right Elbow Exam date and time: 04/03/2025 6:27 PM Age: 65 years old Clinical indication: Injury or trauma; Other: Hit w/ ratchet strap TECHNIQUE: Imaging protocol: Radiologic exam of the right elbow. Views: 1 or 2 views. COMPARISON: No relevant prior studies available. FINDINGS: Bones/joints: No acute fracture identified. Mild degenerative changes. Soft tissues: Normal. IMPRESSION: No acute findings.
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
--- NOTE | 2025-04-03 18:27 | PC.NURSE ---
XR AT BEDSIDE
--- NOTE | 2025-04-03 18:41 | CT_ITS ---
PROCEDURE INFORMATION: Exam: CTA Right Upper Extremity With Contrast Exam date and time: 04/03/2025 7:25 PM Age: 65 years old Clinical indication: Other: Right ue bleeding TECHNIQUE: Imaging protocol: Computed tomographic angiography of the right upper extremity with contrast, including non-contrast images if performed. 3D rendering (Not supervised by radiologist): MIP and/or 3D reconstructed images were created by the technologist. Radiation optimization: All CT scans at this facility use at least one of these dose optimization techniques: automated exposure control; mA and/or kV adjustment per patient size (includes targeted exams where dose is matched to clinical indication); or iterative reconstruction. Contrast material: ISO 370; Contrast volume: 100 ml; Contrast route: INTRAVENOUS (IV); COMPARISON: CR XR ELBOW RT 2V 04/03/2025 6:27 PM FINDINGS: Right subclavian artery: No occlusion or significant stenosis. Axillary artery: No occlusion or significant stenosis. Brachial artery: No occlusion or significant stenosis. Radial artery: No occlusion or significant stenosis. Ulnar artery: No occlusion or significant stenosis. Bones/joints: No evident fracture. No evident radiopaque foreign body.T Soft tissues: A 14 x 10 x 23 mm subtle mild hyperdense lesion noted within the posterior aspect of the triceps muscle at the mid upper arm level centered on axial image 79 of series 7 and coronal image 79 of series 1001 compatible with intramuscular hematoma. No evidence of active contrast extravasation to suggest active bleeding. Superficial subcutaneous fat edema noted along the posterior and medial mid to distal upper arm region. IMPRESSION: A 23 mm intramuscular hyperdense lesion in the posterior triceps muscle suggesting intramuscular hematoma. No evidence of active contrast extravasation to suggest active bleeding. Associated mild subcutaneous fat tissue edema of the proximal to mid upper arm level.
[2025-04-03 19:19] LABS: Chloride 104 mmol/L (98-107); Potassium 3.9 mmoL/L (3.5-5.1); Sodium 137 mmol/L (136-145)
[2025-04-03 19:22] LABS: Anion Gap 11.9 mEq/L (5-15); Blood Urea Nitrogen 27 mg/dl (9-20); Calcium 8.6 mg/dl (8.4-10.2); Carbon Dioxide 25 mmol/L (22.0-30.0); Creatinine Clearance Estimated 94 mL/min (50-200); Creatinine,Serum 1.00 mg/dl (0.66-1.25); Estimated Glomerular Filt Rate 75 ml/min (>60); GFR (African American) 91 ML/MIN (>60); Glucose 195 mg/dl (74-100)
[2025-04-03] MEDS: IOPAMIDOL-370 (76%);100ML BOTTLE 100 ML IV (19:29)
[2025-04-03] MEDS: 0.9 % SODIUM CHLORIDE 50 ML VIAL IV (19:29)
[2025-04-03 20:19] VITALS: BP 131/74; O2SAT 92
[2025-04-03 20:30] VITALS: BP 128/72; PULSE 65; O2SAT 97
[2025-04-03 21:28] VITALS: BP 139/85; PULSE 66; RESP 18; TEMP 36.8; O2SAT 98
== END 2025-04-03 21:30 | disposition home or self-care (01) ==
PROVIDERS: Emergency Provider Student in an Organized Health Care Education/Training Program; PCP Family Medicine
DX: S40.021A Contusion of right upper arm, initial encounter (principal); W22.8XXA Striking against or struck by other objects, initial encounter
CPT/HCPCS: 73070; 73206; 80048; 99284; Q9967